=== PATIENT | male | born 1975 | race Caucasian/White ===

== ENCOUNTER 2024-03-16 12:15 | Inpatient (IN) ==
--- NOTE | 2024-03-16 12:46 | Emergency Department Note ---
Impression & Plan SOB (shortness of breath), CHF (congestive heart failure), Pedal edema, Anemia, Methamphetamine abuse ED Provider Note NAME: CARLTON CHO AGE: 48 SEX: M : 1975 ARRIVES VIA: Ambulance INFORMANT: [Patient] ED PROVIDER(S): [Carlton Donald MD] CHIEF COMPLAINT: Short of breath HISTORY OF PRESENT ILLNESS: The patient is a 48-year-old male who has been fatigued and tired and a bit short of breath for around 2 weeks. He has noticed some gargling in his throat and some congestion. He has noticed wheezing. No fever. About a week ago, he noticed some swelling of both feet. This swelling has progressed to his knees. Today he presents for evaluation. Patient does admit that he uses methamphetamine about 5 times a week. He did snort some meth prior to ED arrival. The patient did see a PA outpatient. He was given steroids, he finished up the steroids about 2 days ago, he believes that the steroids helped his breathing slightly. Patient does have an albuterol nebulizer. He states that he was given a long- acting beta agonist/steroid combination medication the same day he was prescribed the steroids. PMHx/PSHx/Social Hx: See Below PHYSICAL EXAM: GENERAL: Patient is in no acute distress. HEENT: No acute trauma, normocephalic atraumatic, mucous membranes moist, no nasal congestion. NECK: No stridor, no adenopathy, no meningismus, trachea is midline. LUNGS: Diminished breath sounds bilaterally with some coarse breath sounds bilaterally. There are no wheezes, there is no respiratory distress HEART: Mildly tachycardic, regular rhythm, no murmurs. ABDOMEN: Soft, nontender, no peritonitis. EXTREMITIES: No cyanosis, full range of motion of all the joints without pain or difficulty. Moderate bilateral pedal edema. NEUROLOGIC: Oriented x 3, no acute motor or sensory deficits, no focal weakness. SKIN: No jaundice, no diaphoresis. DIFFERENTIAL DIAGNOSIS: Fluid overload/CHF, DVT or PE, electrolyte imbalance, renal or liver failure, asthma exacerbation, viral illness, pneumonia, among others. EMERGENCY DEPARTMENT PROCEDURES: MEDICAL DECISION MAKING: There is no leukocytosis. The patient is anemic with a hemoglobin of 11.6. There is a normal platelet count. No coagulopathy. No renal failure or significant electrolyte abnormality. Lactic acid level is not elevated making severe sepsis less likely. Alk phos was elevated, the remaining liver enzymes were unremarkable. The TSH was quite low however, the T4 was normal. Chest x- ray shows some mild cardiomegaly and heart failure. BNP was elevated at 470, consistent with fluid overload/CHF. Bilateral lower extremity ultrasound does not show DVT. Chest CT shows congestion of the lungs possibly consistent with CHF. There was no PE. Urinalysis did not show findings of infection. Urine tox was positive for amphetamines and ecstasy. Respiratory bio fire was negative. On exam, the patient was hypertensive and tachycardic. Pedal edema was present. Patient had a very thorough workup in the ED. It appears his dyspnea and edema are secondary to fluid overload/CHF. The patient was given IV Lasix 40 mg, he has diuresed significantly. Given his presentation, given his findings, given the progression of symptoms over the last couple of weeks, I do think a hospital stay is warranted. Further cardiac workup is indicated. A cardiac echo would be indicated. I spoke with the patient and case management. The on-call hospitalist was consulted. Of note, the patient's blood pressure and heart rate have both improved with the administration of Lasix. Prior/Outside records/notes reviewed: Today's EMS notes describing his presentation and transport to this hospital. ECG per my interpretation: Indication was tachycardia. The ECG shows a sinus tachycardia with a rate of 110. There is some left atrial enlargement and some nonspecific ST change. There is no ST elevation. There is an inverted T wave in lead aVL. No PVCs. The QTc is 500. Continuous Cardiac Monitoring per my interpretation: An order was placed for continuous cardiac monitoring. The monitor shows a rate of 103 with sinus tachycardia. Imaging/x-ray results per my interpretation: Chest x-ray shows some mild cardiomegaly with what appears to be CHF. No focal pneumonia. Chronic Medical/Social conditions affecting care: History of methamphetamine use. Care/Management discussed with: Case management, the on-call hospitalist. Level of care consideration(s): After review of the information above and other included data: --I believe the patient requires escalation of care to admission Critical Care Note: I have personally spent 49 minutes of critical care time in the direct management of this patient. This includes bedside care, interpretation of diagnostic studies, and testing, discussion with consultants, patient, and family members, and other required patient management activities. This 49 minutes is in excess of all separately billable procedures. DISPOSITION: Admission Past Med/Surg History Problem List (Updated 03/16/24 @ 15:42 by Carlton Donald MD) Methamphetamine abuse (Acute) Anemia (Acute) Pedal edema (Acute) CHF (congestive heart failure) (Acute) SOB (shortness of breath) (Acute) Medical History RAD (reactive airway disease) Social History Smoking Status: Current every day smoker Tobacco Type: Cigarettes Feels Safe at Home: Yes Allergies Allergies Allergy/AdvReac Type Severity Reaction Status Date / Time No Known Allergies Allergy Unverified 05/03/12 09:59 Results & Data (ED) Vital Signs Vital Signs - 24 hr 03/16/24 12:49 03/16/24 12:54 03/16/24 12:54 Temperature 36.8 C Temperature Source Oral Pulse Rate 108 H 111 H Pulse Rate [Right Brachial] Pulse Rhythm Regular Pulse Rhythm [Right Brachial] Pulse Strength Normal Pulse Strength [Right Brachial] Respiratory Rate 22 Respiratory Effort / Characteristics Non-Labored Respiratory Depth Normal Respiratory Pattern Regular Blood Pressure 175/117 H Blood Pressure [Right Arm] Blood Pressure Mean 136 Blood Pressure Mean [Right Arm] Blood Pressure Position Sitting Blood Pressure Position [Right Arm] Pulse Oximetry 96 92 Oxygen Delivery Method Room Air Room Air Sepsis Recent Fever Within 48 Hours No Sepsis New/Unexplained Change in Mental Status N/A Sepsis Action Taken by Nursing Physician Notified 03/16/24 15:27 Temperature Temperature Source Pulse Rate Pulse Rate [Right Brachial] 94 H Pulse Rhythm Pulse Rhythm [Right Brachial] Regular Pulse Strength Pulse Strength [Right Brachial] Normal Respiratory Rate 20 Respiratory Effort / Characteristics Non-Labored Respiratory Depth Normal Respiratory Pattern Regular Blood Pressure Blood Pressure [Right Arm] 144/97 H Blood Pressure Mean Blood Pressure Mean [Right Arm] 112 Blood Pressure Position Blood Pressure Position [Right Arm] Sitting Pulse Oximetry 96 Oxygen Delivery Method Room Air Sepsis Recent Fever Within 48 Hours Sepsis New/Unexplained Change in Mental Status Sepsis Action Taken by [facility] Medications Current Medication List: was personally reviewed by me Laboratory Data Attestation: I reviewed the patient's lab results. 03/16/24 12:30 03/16/24 12:30 Lab Results 03/16/24 03/16/24 Range/Units 12:30 13:00 WBC 7.13 (4.8-10.8) K/ul RBC 4.77 (4.70-6.10) M/uL Hgb 11.6 L (14.0-18.0) g/dl Hct 36.9 L (42.0-52.0) % MCV 77.4 L (80.0-100.0) fL MCH 24.3 L (25.0-34.0) pg MCHC 31.4 L (32.0-36.0) g/dL RDW Std Deviation 38.6 (36.4-46.3) fL RDW Coeff of Bora 13.7 (11.5-14.5) % Plt Count 211 (130-400) K/uL MPV 11.7 (9.4-12.4) fL Immature Gran % (Auto) 0.1 % Neut % (Auto) 51.1 % Lymph % (Auto) 38.4 % Calloway % (Auto) 5.6 % Eos % (Auto) 4.1 % Baso % (Auto) 0.7 % Neut # (Auto) 3.64 (1.40-6.50) K/uL Lymph # (Auto) 2.74 (1.20-3.40) K/uL Calloway # (Auto) 0.40 (0.11-0.59) K/uL Eos # (Auto) 0.29 (0.00-0.50) K/uL Baso # (Auto) 0.05 (0.00-0.20) K/uL Immature Gran # (Auto) 0.01 (0.01-0.20) K/uL PT 10.6 (9.0-12.0) Seconds INR 1.0 (0.9-1.1) APTT 28 (21-31) Seconds PTT Ratio 1.0 Sodium 137 (136-145) mmol/L Potassium 4.3 (3.5-5.1) mmol/L Chloride 104 (98-107) mmol/L Carbon Dioxide 28 (21-32) mmol/L Anion Gap 5 (3-11) BUN 18 (6-23) mg/dl Creatinine 0.70 (0.6-1.4) mg/dl Est Cr Clr Drug Dosing 168.0 ml/min eGFR 115.08 BUN/Creatinine Ratio 25.7 H (10-20) Glucose 119 H (70-99(Fasting)) mg/dl Lactate 1.0 (0.4-2.0) mmol/L Calcium 9.0 (8.6-10.3) mg/dl Magnesium 1.8 (1.7-2.4) mg/dl Total Bilirubin 0.5 (0.2-1.0) mg/dl AST 30 (13-39) U/L ALT 43 (7-52) U/L Alkaline Phosphatase 228 H (34-104) U/L Troponin I High Sens 12.7 (0-20) pg/ml B-Natriuretic Peptide 470 H (0-100) pg/ml Total Protein 7.6 (6.0-8.3) gm/dl Albumin 4.3 (3.4-5.0) gm/dl Globulin 3.3 (2.5-4.0) gm/dl Albumin/Globulin Ratio 1.3 (0.9-2) TSH < 0.010 L (0.300-4.500) uIu/ml Free T4 1.36 (0.61-1.60) ng/dl Urine Color Yellow Urine Appearance Clear (Clear) Urine pH 5.0 (4.5-7.5) Ur Specific Sulphur 1.031 H (1.000-1.030) Urine Protein 2+ H (Negative) Urine Glucose (UA) Negative (Negative) Urine Ketones Negative (Negative) Urine Blood Negative (Negative) Urine Nitrite Negative (Negative) Urine Bilirubin Negative (Negative) Urine Urobilinogen Negative (Negative) Ur Leukocyte Esterase Negative (Negative) Urine WBC (Auto) 0-5 (0-5) /hpf Urine RBC (Auto) 0-2 (0-2) /hpf U Hyaline Cast (Auto) 0-2 (0-2) /lpf U Epithel Cells (Auto) 0-2 (0-2) /hpf Urine Bacteria (Auto) None Seen (None Seen) Urine Opiates Screen Neg (Neg) Ur Methadone, Qual Neg (Neg) Urine Fentanyl Screen Neg (Neg) Urine Barbiturates Neg (Neg) Ur Phencyclidine (PCP) Neg (Neg) U Amphetamin/Meth Scrn Pos H (Neg) MDMA (Ecstasy) Screen Pos H (Neg) U Benzodiazepines Scrn Neg (Neg) Ur Cocaine Metabolite Neg (Neg) U Marijuana (THC) Screen Neg (Neg) Adenovirus (PCR) Not Detected (NotDetected) B. pertussis DNA (PCR) Not Detected (NotDetected) B.parapertussis DNA PCR Not Detected (NotDetected) C. pneumoniae DNA (PCR) Not Detected (NotDetected) Coronavirus OC43 (PCR) Not Detected (NotDetected) Coronavirus HKU1 (PCR) Not Detected (NotDetected) Coronavirus 229E (PCR) Not Detected (NotDetected) SARS-CoV-2 (PCR) Not Detected (NotDetected) Coronavirus NL63 (PCR) Not Detected (NotDetected) Human Metapneumovir PCR Not Detected (NotDetected) Influenza Type A (PCR) Not Detected (NotDetected) Influenza Type B (PCR) Not Detected (NotDetected) M. pneumoniae (PCR) Not Detected (NotDetected) Parainfluenza 1 (PCR) Not Detected (NotDetected) Parainfluenza 2 (PCR) Not Detected (NotDetected) Parainfluenza 3 (PCR) Not Detected (NotDetected) Parainfluenza 4 (PCR) Not Detected (NotDetected) RSV (PCR) Not Detected (NotDetected) Entero/Rhino (PCR) Not Detected (NotDetected) Administered Medications Discontinued Medications Furosemide (Furosemide 40 Mg/4 Ml Vial) 40 mg IV ONE ONE Stop: 03/16/24 13:15 Last Admin: 03/16/24 13:37 Dose: 40 mg Documented By: FAVIOLA Ioversol (Optiray 320 125ml) 76 ml IV ONCE ONE Stop: 03/16/24 14:22 Last Admin: 03/16/24 14:21 Dose: 76 ml Documented By: ASHLIE Imaging Data Radiologist's Impression: Venous Doppler Study 03/16/24 12:36 EXAMINATION: Bilateral lower extremity ultrasound lower CLINICAL HISTORY: Bilateral leg swelling, wheezing PRIORS: None TECHNIQUE: Ultrasound interrogation of the deep venous structures was performed with grayscale, color Doppler, compression and augmentation. FINDINGS: Examination is limited due to body habitus. The bilateral common femoral, superficial femoral, saphenous, popliteal and tibial veins demonstrate normal compressibility, frequency and augmentation. IMPRESSION: No sonographic evidence of deep venous thrombosis in the bilateral lower extremities. Electronically signed by Mariella Hoffman 03-16-2024 3:16 PM Chest X-Ray 03/16/24 12:37 XR chest 1V portable CLINICAL HISTORY: Dyspnea. COMPARISON STUDY: No previous studies for comparison. FINDINGS: There is no pneumothorax or pleural effusion. There is mild enlargement of the cardiac silhouette. Interstitial thickening is present. Hazy right lower lung opacity is present. IMPRESSION: 1. Mild enlargement of the cardiac silhouette with interstitial thickening suggestive of interstitial pulmonary edema. 2. Hazy right lower lung opacity. This could be related to overlying soft tissues or alveolar pulmonary edema. Superimposed pneumonia could appear similar. Radiographic follow-up is recommended. ACT 112: Negative or not required by law. Electronically signed by: Ryan Eng M.D. 03/16/2024 12:58 PM Chest CTA 03/16/24 13:14 EXAMINATION: Chest CTA with CLINICAL HISTORY: Dyspnea PRIORS: None TECHNIQUE: Contiguous CTA axial images were obtained through the chest with the use of intravenous contrast. Sagittal and coronal reformations are supplied. FINDINGS: Central and segmental pulmonary arteries are well-opacified. No central or peripheral pulmonary embolism. Heart size is top normal. No pleural or pericardial effusion. Moderate to advanced atherosclerotic disease of the coronary arteries. Mild atherosclerotic disease of the aortic arch. Trachea and mainstem bronchi are patent. Mild diffuse groundglass attenuation throughout all lobes of the lung. Mild pulmonary emphysema in the upper lobes. No large bleb or pneumothorax. No traction bronchiectasis or honeycombing. No pneumonia. Thyroid size is normal. Prominent nonpathologically enlarged lymph nodes present in the mediastinum. Limited visualization of the upper abdomen shows no acute abnormality. In bone windows, no acute osseous abnormality. IMPRESSION: 1. No CT evidence of a central or peripheral pulmonary embolism. 2. Mild pulmonary emphysema, most pronounced in the upper lobes with diffuse bilateral groundglass attenuation throughout the lungs favoring alveolitis. No lobar pneumonia. 3. Moderate to advanced atherosclerotic disease of the coronary arteries. ACT 112: Positive. There are findings on this examination that require communication between the performing entity and the patient following Patient Test Result Information Act ([place] ACT 112) guidelines. Electronically signed by Marielal Hoffman 03-16-2024 2:33 PM Discharge Plan Visit Data Chief Complaint: Swelling/Edema to Extremity Stated Complaint: SWOLLEN BLE/WHEEZING ED Provider: Carlton Donald Discharge Problem: SOB (shortness of breath), CHF (congestive heart failure), Pedal edema, Anemia, Methamphetamine abuse Patient Disposition: Admitted As Inpatient Condition: Fair Forms Stand Alone Forms: [facility] Referrals Referrals: Diane Elena MD [Outside Practitioners] - Discharge Problem: CHF (congestive heart failure) Qualifiers: Heart failure type: unspecified Heart failure chronicity: acute Qualified Code(s): I50.9 - Heart failure, unspecified Anemia Qualifiers: Anemia type: unspecified type Qualified Code(s): D64.9 - Anemia, unspecified
[2024-03-16 12:55] LABS: Basophils # (auto) 0.05 K/uL (0.00-0.20); Basophils % (auto) 0.7 %; Eosinophils # (auto) 0.29 K/uL (0.00-0.50); Eosinophils % (auto) 4.1 %; Hematocrit (blood only) 36.9 % (42.0-52.0); Hemoglobin 11.6 g/dl (14.0-18.0); Immature Granulocytes # (auto) 0.01 K/uL (0.01-0.20); Immature Granulocytes % (auto) 0.1 %; Lymphocytes # (auto) 2.74 K/uL (1.20-3.40); Lymphocytes % (auto) 38.4 %; Mean Corpuscular Hemoglobin 24.3 pg (25.0-34.0); Mean Corpuscular Hgb Conc 31.4 g/dL (32.0-36.0); Mean Corpuscular Volume 77.4 fL (80.0-100.0); Mean Platelet Volume 11.7 fL (9.4-12.4); Monocytes % (auto) 5.6 %; Neutrophils # (auto) 3.64 K/uL (1.40-6.50); Neutrophils % (auto) 51.1 %; Platelet Count 211 K/uL (130-400); RDW Coefficient of Variation 13.7 % (11.5-14.5); RDW Standard Deviation 38.6 fL (36.4-46.3); Red Blood Count 4.77 M/uL (4.70-6.10); White Blood Count 7.13 K/ul (4.8-10.8)
--- NOTE | 2024-03-16 12:59 | XRay Report ---
XR chest 1V portable CLINICAL HISTORY: Dyspnea. COMPARISON STUDY: No previous studies for comparison. FINDINGS: There is no pneumothorax or pleural effusion. There is mild enlargement of the cardiac silh ouette. Interstitial thickening is present. Hazy right lower lung opacity is present. IMPRESSION: 1. Mild enlargement of the cardiac silhouette with interstitial thickening suggestive of interstitial pulmonary edema. 2. Hazy right lower lung opacity. This could be related to overlying soft tissues or alveolar pulmona ry edema. Superimposed pneumonia could appear similar. Radiographic follow-up is recommended. ACT 112: Negative or not required by law. Electronically signed by: Ryan Eng M.D. 03/16/2024 12:58 PM
[2024-03-16 13:09] LABS: Alanine Aminotransferase 43 U/L (7-52); Albumin Globulin Ratio 1.3 (0.9-2); Albumin Level 4.3 gm/dl (3.4-5.0); Alkaline Phosphatase 228 U/L (34-104); Anion Gap 5 (3-11); Aspartate Aminotransferase 30 U/L (13-39); BUN Creatinine Ratio 25.7 (10-20); Bilirubin,Total 0.5 mg/dl (0.2-1.0); Blood Urea Nitrogen 18 mg/dl (6-23); Carbon Dioxide 28 mmol/L (21-32); Chloride 104 mmol/L (98-107); Globulin 3.3 gm/dl (2.5-4.0); Glucose 119 mg/dl (70-99(Fasting)); Magnesium 1.8 mg/dl (1.7-2.4); Potassium 4.3 mmol/L (3.5-5.1); Sodium 137 mmol/L (136-145); Total Protein 7.6 gm/dl (6.0-8.3)
[2024-03-16 13:15] LABS: Troponin I High Sensitivity 12.7 pg/ml (0-20)
[2024-03-16 13:30] LABS: Partial Thromboplastin Time 28 Seconds (21-31); Prothrombin Time 10.6 Seconds (9.0-12.0)
[2024-03-16 13:31] LABS: Appearance Urine Clear (Clear); Bacteria Urine Automated None Seen (None Seen); Bilirubin Urine Negative (Negative); Blood Urine Negative (Negative); Cast Urine Automated 0-2 /lpf (0-2); Color Urine Yellow; Epithelial Cell Urine Auto 0-2 /hpf (0-2); Glucose Urine UA Negative (Negative); Ketones Urine Negative (Negative); Leukocyte Esterase Urine Negative (Negative); Nitrite Urine Negative (Negative); Protein Urine 2+ (Negative); RBC Urine Automated 0-2 /hpf (0-2); Specific Gravity Urine 1.031 (1.000-1.030); Urobilinogen Urine Negative (Negative); WBC Urine Automated 0-5 /hpf (0-5)
[2024-03-16] MEDS: FUROSEMIDE 40 MG/4 ML VIAL IV ONE (13:37)
[2024-03-16 13:39] LABS: Thyroid Stimulating Hormone < 0.010 uIu/ml (0.300-4.500)
[2024-03-16 13:53] LABS: Amphetamines+Metham, Urine Pos (Neg); Barbiturates, Urine Neg (Neg); Benzodiazepine, Urine Neg (Neg); Cocaine, Urine Neg (Neg); Fentanyl, Urine Neg (Neg); MDMA (Ecstacy), Urine Pos (Neg); Marijuana, Urine Neg (Neg); Methadone, Urine Neg (Neg); Opiate, Urine Neg (Neg); Phencyclidine, Urine Neg (Neg)
[2024-03-16 14:14] LABS: T4 Free Thyroxine 1.36 ng/dl (0.61-1.60)
[2024-03-16 14:17] LABS: Adenovirus PCR Not Detected (NotDetected); Bordetella parapertussis PCR Not Detected (NotDetected); Bordetella pertussis PCR Not Detected (NotDetected); Chlamydia pneumoniae PCR Not Detected (NotDetected); Coronavirus 229E PCR Not Detected (NotDetected); Coronavirus CoV-2 (COVID19)PCR Not Detected (NotDetected); Coronavirus HKU1 PCR Not Detected (NotDetected); Coronavirus NL63 PCR Not Detected (NotDetected); Coronavirus OC43PCR Not Detected (NotDetected); Human Metapneumovirus PCR Not Detected (NotDetected); Influenza A PCR Not Detected (NotDetected); Influenza B PCR Not Detected (NotDetected); Mycoplasma pneumoniae PCR Not Detected (NotDetected); Parainfluenza Virus 1 PCR Not Detected (NotDetected); Parainfluenza Virus 2 PCR Not Detected (NotDetected); Parainfluenza Virus 3 PCR Not Detected (NotDetected); Parainfluenza Virus 4 PCR Not Detected (NotDetected); Respiratory Syncytial VirusPCR Not Detected (NotDetected); Rhinovirus/Enterovirus PCR Not Detected (NotDetected)
[2024-03-16] MEDS: OPTIRAY 320 125ml IV ONE (14:21)
--- NOTE | 2024-03-16 14:33 | CT Scan Report ---
EXAMINATION: Chest CTA with CLINICAL HISTORY: Dyspnea PRIORS: None TECHNIQUE: Contiguous CTA axial images were obtained through the chest with the use of intravenous contrast. Sagittal and coronal reformations are supplied. FINDINGS: Central and segmental pulmonary arteries are well-opacified. No central or peripheral pulmonary embolism. Heart size is top normal. No pleural or pericardial effusion. Moderate to advanced atherosclerotic disease of the coronary arteries. Mild atherosclerotic disease of the aortic arch. Trachea and mainstem bronchi are patent. Mild diffuse groundglass attenuation throughout all lobes of the lung. Mild pulmonary emphysema in the upper lobes. No large bleb or pneumothorax. No traction bronchiectasis or honeycombing. No pneumonia. Thyroid size is normal. Prominent nonpathologically enlarged lymph nodes present in the mediastinum. Limited visualization of the upper abdomen shows no acute abnormality. In bone windows, no acute osseous abnormality. IMPRESSION: 1. No CT evidence of a central or peripheral pulmonary embolism. 2. Mild pulmonary emphysema, most pronounced in the upper lobes with diffuse bilateral groundglass attenuation throughout the lungs favoring alveolitis. No lobar pneumonia. 3. Moderate to advanced atherosclerotic disease of the coronary arteries. ACT 112: Positive. There are findings on this examination that require communication between the performing entity and the patient following Patient Test Result Information Act ([place] ACT 112) guidelines. Electronically signed by Mariella Hoffman 03-16-2024 2:33 PM
--- NOTE | 2024-03-16 15:17 | Ultrasound Report ---
EXAMINATION: Bilateral lower extremity ultrasound lower CLINICAL HISTORY: Bilateral leg swelling, wheezing PRIORS: None TECHNIQUE: Ultrasound interrogation of the deep venous structures was performed with grayscale, color Doppler, compression and augmentation. FINDINGS: Examination is limited due to body habitus. The bilateral common femoral, superficial femoral, saphenous, popliteal and tibial veins demonstrate normal compressibility, frequency and augmentation. IMPRESSION: No sonographic evidence of deep venous thrombosis in the bilateral lower extremities. Electronically signed by Mariella Hoffman 03-16-2024 3:16 PM
--- NOTE | 2024-03-16 16:00 | History & Physical Report ---
Date of Service March 16, 2024 Assessment & Plan (1) Volume overload: (2) SOB (shortness of breath): (3) Methamphetamine abuse: Plan: This is a 48-year-old male with PMH of hypertension, asthma, history of opioid abuse now on Subutex, methamphetamine use, tobacco use disorder, depression, anxiety and other medical problems listed below who presents to the ED with shortness of breath x 2 weeks. BNP 470, BLE on exam CTA chest without evidence of PE, mild pulmonary emphysema, bilat groundglass opacities favoring alveolitis, mod-adv atherosclerotic disease of coronaries BLE venous doppler negative for DVT 2D echo Lasix 40mg IV BID Daily weights, low sodium diet, strict I&Os Routine cards consult Discussed importance of methamphetamine cessation Repeat procal in AM given possible alveolitis on imaging - no abx indicated at this time Started on aspirin given atherosclerosis seen on imaging Fasting lipid panel, a1c in AM (4) Abnormal TSH: Plan: TSH <0.010, free T4 WNL at 1.36 Thyroid ultrasound in setting of ? R thyroid nodule on exam Repeat TFTs (5) Anemia: Plan: Hgb 11.6 (unknown baseline), MCV 77 Iron studies, folic acid, B12 labs pending for AM Daily CBC (6) History of opioid abuse: Plan: Continue Subutex 8mg BID (7) Asthma: Plan: No wheezing on exam Continue albuterol, Advair inh Duonebs PRN DVT Ppx: SQ lovenox Code status: FULL PCP: Live Dispo: Admitted to PCU Patient seen in collaboration with Dr. Jesus. Please see addendum. I spent a total of 65 minutes coordinating, documenting, and providing care for this patient excluding time spent in the performance of separately billed services. History of Present Illness Chief Complaint: SOB, weight gain Primary Care Provider: NO PCP This is a 48-year-old male with PMH of hypertension, asthma, history of opioid abuse now on Subutex, methamphetamine use, tobacco use disorder, depression, anxiety and other medical problems listed below who presents to the ED with shortness of breath x 2 weeks. More SOB when laying down and a slight wheeze. Denies F/C, cough, congestion. Over the past week, has noted lower extremity swelling that started in his feet and has progressed to his knees. States he has gained 70# over the past 6 months, which he attributes to drinking " a lot of chocolate milk". Was seen by PCP on February 21 for this SOB, especially at night and was treated for asthma exacerbation. Completed a steroid taper and has been using Advair but states SOB has not really improved at all. Also thinks he has sleep apnea but is undiagnosed. Admits to using meth about 5 times a week, snorting some today prior to arrival. No F/C, lightheadedness. CP, SOB, N/V, abd pain, dysuria, diarrhea or constipation. Denies any known issues with thyroid. Allergies Allergy/AdvReac Type Severity Reaction Status Date / Time No Known Allergies Allergy Unverified 05/03/12 09:59 Home Medications Medication Instructions Recorded Confirmed Type albuterol sulfate 2.5 mg/3 mL 2.5 mg continuous nebulization Q4 03/16/24 03/16/24 History (0.083 %) solution for nebulization PRN DIRECTED albuterol sulfate 90 mcg/actuation 2 puff inhalation .EVERY 4-6 HOURS 03/16/24 03/16/24 History aerosol inhaler PRN DIRECTED buprenorphine HCl 8 mg sublingual 8 mg sublingual BID 03/16/24 03/16/24 History tablet fluticasone 100 mcg-salmeterol 50 1 ea inhalation AMHS 03/16/24 03/16/24 History mcg/dose blistr powdr for inhalation Past Med/Surg History Problem List (Updated 03/16/24 @ 18:06 by Nydia Alejandre PA-C) Abnormal TSH Volume overload Methamphetamine abuse (Acute) Anemia (Acute) SOB (shortness of breath) (Acute) Medical History (Updated 03/16/24 @ 18:06 by Nydia Alejandre PA-C) Asthma History of opioid abuse Surgical History No pertinent past surgical history Family History Other Asthma Diabetes Social History Smoking Status: Current every day smoker Tobacco Type: Cigarettes packs per day: 0.5; Cigarettes Per Day: 1/2 pack per day; Second Hand Exposure: No; Do You Dip or Chew Tobacco: No; Tobacco Cessation Education Requested by Patient: No Hx Alcohol Use: Yes Alcohol type: beer Hx Substance Use: Yes Non-Prescribed Medications: Amphetamines Non-Prescribed Medications Comment: snorts meth 4-5 days/week, former opioid abuse now on suboxone Last Used Substance: Just Prior to Arrival Preferred Language: Citizen Of [place] Communication Ability: Effective Aoc Director Combat Operations Officer Required: No Beliefs That Will Affect Care: None Current Living Situation: Spouse and Family Current Living Situation Comment: Lives with girlfriend and son Other Information That Helps Us Care for You: No Feels Safe at Home: Yes Safety Concerns: Feels Safe At This Time Assistive Devices: None Review of Systems Review of Systems: At least ten systems reviewed and negative except as noted in the HPI. Physical Exam Physical Exam: Please see Dr. Jesus's addendum for physical exam. Results & Data Results & Data Vital Signs (Past 12 Hours) Vital Signs Temp Pulse Pulse Resp BP BP Pulse Ox 03/16/24 15:27 94 H 20 144/97 H 96 03/16/24 12:54 92 03/16/24 12:54 36.8 C 111 H 22 175/117 H 96 03/16/24 12:49 108 H O2 Del Method 03/16/24 15:27 Room Air 03/16/24 12:54 Room Air 03/16/24 12:54 Room Air 03/16/24 12:49 Laboratory Results Short CBC 03/16/24 Range/Units 12:30 WBC 7.13 (4.8-10.8) K/ul Hgb 11.6 L (14.0-18.0) g/dl Hct 36.9 L (42.0-52.0) % Plt Count 211 (130-400) K/uL BMP 03/16/24 12:30 Sodium 137 Potassium 4.3 Chloride 104 Carbon Dioxide 28 BUN 18 Creatinine 0.70 Glucose 119 H Calcium 9.0 Liver Function 03/16/24 Range/Units 12:30 Total Bilirubin 0.5 (0.2-1.0) mg/dl AST 30 (13-39) U/L ALT 43 (7-52) U/L Alkaline Phosphatase 228 H (34-104) U/L Albumin 4.3 (3.4-5.0) gm/dl Urine 03/16/24 Range/Units 13:00 Urine Color Yellow Urine Appearance Clear (Clear) Urine pH 5.0 (4.5-7.5) Ur Specific [place] 1.031 H (1.000-1.030) Urine Protein 2+ H (Negative) Urine Glucose (UA) Negative (Negative) Diagnostic Findings Venous Doppler Study 03/16/24 12:36 EXAMINATION: Bilateral lower extremity ultrasound lower CLINICAL HISTORY: Bilateral leg swelling, wheezing PRIORS: None TECHNIQUE: Ultrasound interrogation of the deep venous structures was performed with grayscale, color Doppler, compression and augmentation. FINDINGS: Examination is limited due to body habitus. The bilateral common femoral, superficial femoral, saphenous, popliteal and tibial veins demonstrate normal compressibility, frequency and augmentation. IMPRESSION: No sonographic evidence of deep venous thrombosis in the bilateral lower extremities. Electronically signed by Mariella Hoffman 03-16-2024 3:16 PM Chest X-Ray 03/16/24 12:37 XR chest 1V portable CLINICAL HISTORY: Dyspnea. COMPARISON STUDY: No previous studies for comparison. FINDINGS: There is no pneumothorax or pleural effusion. There is mild enlargement of the cardiac silhouette. Interstitial thickening is present. Hazy right lower lung opacity is present. IMPRESSION: 1. Mild enlargement of the cardiac silhouette with interstitial thickening suggestive of interstitial pulmonary edema. 2. Hazy right lower lung opacity. This could be related to overlying soft tissues or alveolar pulmonary edema. Superimposed pneumonia could appear similar. Radiographic follow-up is recommended. ACT 112: Negative or not required by law. Electronically signed by: Ryan Eng M.D. 03/16/2024 12:58 PM Chest CTA 03/16/24 13:14 EXAMINATION: Chest CTA with CLINICAL HISTORY: Dyspnea PRIORS: None TECHNIQUE: Contiguous CTA axial images were obtained through the chest with the use of intravenous contrast. Sagittal and coronal reformations are supplied. FINDINGS: Central and segmental pulmonary arteries are well-opacified. No central or peripheral pulmonary embolism. Heart size is top normal. No pleural or pericardial effusion. Moderate to advanced atherosclerotic disease of the coronary arteries. Mild atherosclerotic disease of the aortic arch. Trachea and mainstem bronchi are patent. Mild diffuse groundglass attenuation throughout all lobes of the lung. Mild pulmonary emphysema in the upper lobes. No large bleb or pneumothorax. No traction bronchiectasis or honeycombing. No pneumonia. Thyroid size is normal. Prominent nonpathologically enlarged lymph nodes present in the mediastinum. Limited visualization of the upper abdomen shows no acute abnormality. In bone windows, no acute osseous abnormality. IMPRESSION: 1. No CT evidence of a central or peripheral pulmonary embolism. 2. Mild pulmonary emphysema, most pronounced in the upper lobes with diffuse bilateral groundglass attenuation throughout the lungs favoring alveolitis. No lobar pneumonia. 3. Moderate to advanced atherosclerotic disease of the coronary arteries. ACT 112: Positive. There are findings on this examination that require communication between the performing entity and the patient following Patient Test Result Information Act ([place] ACT 112) guidelines. Electronically signed by Mariella Hoffman 03-16-2024 2:33 PM Supervising Physician Co-Signing Physician Notes Patient is a 48 male with history of asthma, sleep apnea, drug use disorder, tobacco use disorder, obesity and other medical problems who is not seen a physician for many years presents with worsening shortness of breath especially on exertion associated with weight gain, leg edema. He admits to have intermittent wheezing which he attributes to asthma. He also believes that he has sleep apnea but not officially diagnosed. He was recently started on Advair, steroid taper course which did not relieve his symptoms. Please review HPI for complete details of presentation. I personally reviewed blood work and imaging studies. Blood work suggestive of microcytic anemia, glucose 119, lactic normal, alkaline phosphatase 228, BNP elevated at 470, TSH less than 0.010, normal free T4. Urinalysis showed 2+ protein but otherwise within normal limits. Toxicology screen positive for amphetamines. BioFire negative. Venous Doppler showed no DVT. Chest CTA showed mild pulmonary emphysema, and findings suggestive of possible alveolitis, moderate to advanced atherosclerotic disease of coronary arteries. Blood cultures currently pending. EKG showed sinus tachycardia, left atrial enlargement, nonspecific T wave abnormalities, QTc 500. Physical Exam: Vitals signs as noted above General Appearance: Obese, no apparent distress Head: normocephalic, Atraumatic Eyes: normal inspection, EOMI Neck: supple, Trachea midline,? 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 Elevated BNP, clinically volume overloaded I's and O's, daily weight, IV Lasix as above Check resting echo, cardiology consulted Discussed amphetamine cessation Will consider antibiotics if elevated procalcitonin Given atherosclerotic disease on CTA, will start on aspirin Check lipid panel, A1c Further management based on echo results Abnormal thyroid function test Very TSH low, normal free T4 We will order workup for hyperparathyroidism TR antibody, thyroid peroxidase antibody, thyroid ultrasound Will likely need RAIU, thyroid Scintigraphy as outpatient Microcytic anemia Anemia workup ordered Unintentional weight gain Obesity BMI 35 Further workup as outpatient I personally interviewed and examined at bedside. Patient's care is coordinated with Nydia Alejandre PA-C. I have reviewed the advanced practitioner's documentation, and I agree with plan of care. Please refer to the documentation above for details of patient's presentation and for discussion of other issues. I spent a total of34 minutes coordinating, documenting, and providing care for this patient excluding time spent in the performance of separately billed services. (5) Anemia Anemia type: unspecified type Qualified Code(s): D64.9 - Anemia, unspecified
--- OUTSIDE RECORDS SUMMARY | 2024-03-16 17:27 | External Medical Summary | Summary of Care ---
Author Name Unknown Organization [facility] Address [address] [place] [address] Phone [phone] Care Team Providers Care Supervisor Fertilizer Processing Name Role Phone Unavailable Primary Care Provider Unavailabl e Encounter Details Date Type Department Care Team (Late st Contact Info) Description 12/03/2023 Population Health External Data Unspecified Department Allergies No known active allergiesdocumented as of this encounter (statuses as of 12/03/2023) Medications Medication Sig Dispensed Refills Start Date End Date Status MAXAIR AUTOHALER 200 MCG/INH IN AERB Two puffs every 4 hours as needed for wheezing 1 Inhaler 11 03/10/2011 Active amLODIPine (NORVASC) 10 MG Tablet Take 10 mg by mouth at bedtime. 5 05/10/2017 Active buprenorphine HCl (SUBUTEX) 8 MG Sublingual tablet DISSOLVE THREE TABLETS UNDER THE TONGUE EVERY DAY FOR 30 DAYS 0 06/10/2017 Active VENTOLIN HFA 108 (90 Base) MCG/ACT inhaler inhale TWO puffs FOUR TIMES DAILY NEEDED 5 05/10/2017 Active lisinopril (PRINIVIL) 10 MG TabletIndications:HT N, goal below 140/90 Take 1 Tab by mouth daily. 30 Tab 5 06/18/2017 Active triamcinolone acetonide (ARISTOCORT) 0.1 % creamIndications:Ecz alexia, unspecified type Apply topically to affected area 2 times a day. To affected area. 45 g 5 06/18/2017 Active documented as of this encounter (statuses as of 12/03/2023) Active Problems Problem Noted Date Diagnosed Date HTN, goal below 140/90 06/18/2017 Asthma, mild persistent 03/10/2011 Drug abuse, opioid type Depression Generalized anxiety disorder documented as of this encounter (statuses as of 12/03/2023) Resolved Problems Problem Noted Date Diagnosed Date Resolved Date Asthma with severity to be determined 03/10/2011 03/10/2011 Overview: ICD-10 update of inactive term documented as of this encounter (statuses as of 12/03/2023) Immunizations Name Administration Dates Next Due Seasonal Influenza, Trivalen t, (IIV3), with Preserv, (Fluzone) 04/10/2011(Deferred: Patient Refused) TDAP, Age 7 and older, IM (Adacel) 04/10/2011(De ferred: Patient Refused) documented as of this encounter Social History Tobacco Use Types Packs/Day Years Used Date Smoking Tobacco: Every Day Cigarettes 1 8 Smokeless Tobacco: Never Alcohol Use Standard Drinks/Week Comments Yes 0 (1 standard drink = 0.6 oz pur e alcohol) occasional--three times a week PHQ-2 Answer Date Recorded PHQ-2 Score -1 02/03/2018 Sex and Gender Information Value Date Recorded Sex Assigned at Not on file Gender Identity Not on file Sexual Orientation Not on file documented as of this encounter Plan of Treatment Health Maintenance Due Date Last Done Comments DISCUSS TOBACCO CESSATION (Jose PEREZ TO SMARTSET #[id number]) 1977 Pneumococcal Vaccine: Pediat rics (0 to 5 Years) and At-Risk Patients (6 to 64 Years) (1 of 2 - PCV) 08/08/1983 HIV Screening 1992 Albumin/Creatinine Ratio 08/08/1995 Hepatitis C Screening 08/08/1995 DTap/Tdap Vaccines (1 - Tdap) 1996 Hepatitis B Vaccine (1 of 3 - 19+ 3-dose series) 1996 *SPIROMETRY ONCE FOR ASTHMA-ADULT 06/23/2017 Depression Monitoring 06/18/2018 06/18/2017 GFR 09/21/2018 09/21/2017 Cologuard 2022 Colonoscopy 2022 Colorectal Cancer Screening 2022 Fecal Occult Blood Test 2022 Sigmoidoscopy 2022 Lipid Panel 09/21/2022 09/21/2017 COVID-19 Vaccine (1 - 2022-2 4 season) 2023 Influenza Vaccine (FLU shot) (#1) 2023 HPV (Gardasil) Vaccine Aged Out No lo nger eligible based on patient's age to complete this topic MENINGOCOCCAL (MENACTRA/MENVEO) Aged Out No longer eligible based on patient's age to complete this topic documented as of this encounter Medical Devices Not on filedocumented as of this encounter
--- OUTSIDE RECORDS SUMMARY | 2024-03-16 17:27 | External Medical Summary | Summary of Care ---
Author Name Unknown Organization [facility] Address [address] [facility] [facility] [place] [address] Phone [phone] Care Team Providers Care Supervisor Poultry Hatchery Name Role Phone Sultana Campbell MD Primary Care Pr ovider Encounter Details Date Type Department Care Team (Late st Contact Info) Description 02/26/2024 Orders Only PATIENT PORTAL DO NOT DELETE THIS DEPT USED BY [place] [id number] Allergies No known active allergiesdocumented as of this encounter (statuses as of 02/26/2024) Medications buprenorphine HCl (SUBUTEX) 8 MG Sublingual tablet DISSOLVE THREE TABLETS UNDER THE TONGUE EVERY DAY FOR 30 DAYS 0 8 Active VENTOLIN HFA 108 (90 Base) MCG/ACT inhaler inhale TWO puffs FOUR TIMES DAILY NEEDED 5 8 Active predniSONE 10 MG Oral Tablet (Deltasone)Indica tions:Mild persistent asthma without complication Take 5 tabs for 2 days, 4 tabs for 2 days, 3 tabs for 2 days, 2 tabs for 2 days 1 tab for 2 days 30 Tablet 4 Active Albuterol Sulfate (2.5 MG/3ML) 0.083% Inhalation Nebulization Solution (Proventil)Indica tions:Mild persistent asthma without complication Inhale 1 Vial via nebulizer every 4 hours as needed for Wheezing. 120 mL 5 4 Active Fluticasone-Salme terol 100-50 MCG/ACT Inhalation Aerosol Powder Breath Activated (Advair Diskus)Indication s:Mild persistent asthma without complication Inhale 1 Puff by mouth in the morning and 1 Puff before bedtime. 60 Each 2 4 Active documented as of this encounter (statuses as of 02/26/2024) Active Problems Problem Noted Date Diagnosed Date HTN, goal below 140/90 06/18/2017 Asthma, mild persistent 03/10/2011 Drug abuse, opioid type Depression Generalized anxiety disorder documented as of this encounter (statuses as of 02/26/2024) Resolved Problems Problem Noted Date Diagnosed Date Resolved Date Asthma with severity to be determined 03/10/2011 03/10/2011 Overview (07/12/2015): ICD-10 update of inactive term documented as of this encounter (statuses as of 02/26/2024) Immunizations Name Administration Dates Next Due Seasonal Influenza Vac., MDV , IM, 0.5 mL (Fluzone) 04/10/2011(Deferred: Patient Refused) TDAP, Age 7 [...] Recorded Sex Assigned at Not on file Legal Sex Male 5:26 AM EST Gender Identity Not on file Sexual Orientation Not on file documented as of this encounter Plan of Treatment Upcoming Encounters Date Type Department Care Team (Late st Contact Info) Description 03/07/2024 12:00 PM EST [address] [id number] Brant Dominguez CRNP [address] [place] [address] [place] [id number] 04/23/2024 11:40 AM EST Office Visit Family [address] [place] [phone] Sultana Campbell MD [address] [place] [address] [place] [phone] Health Maintenance Due Date Last Done Comments DISCUSS TOBACCO CESSATION (R EFER TO SMARTSET #[id number]) 1977 Pneumococcal Vaccine: Pediat rics (0 to 5 Years) and At-Risk Patients (6 to 64 Years) (1 of 2 - PCV) 08/08/1983 HIV Screening 1992 Albumin/Creatinine Ratio 08/08/1995 Hepatitis C Screening 08/08/1995 DTap/Tdap Vaccines (1 - Tdap) 1996 Hepatitis B Vaccine (1 of 3 - 19+ 3-dose series) 1996 *SPIROMETRY ONCE FOR ASTHMA-ADULT 06/23/2017 Depression Monitoring 06/18/2018 06/18/2017 GFR 09/21/2018 09/21/2017 Diabetes Screening 09/21/2020 09/21/2017 Cologuard 2022 Colonoscopy 2022 Colorectal Cancer Screening 2022 Fecal Occult Blood Test 2022 Sigmoidoscopy 2022 Lipid Panel 09/21/2022 09/21/2017 COVID-19 Vaccine (1 - 2023-2 5 season) 2023 Influenza Vaccine (FLU shot) (#1) 2023 HPV (Gardasil) Vaccine Aged Out No lo nger eligible based on patient's age to complete this topic MENINGOCOCCAL (MENACTRA/MENVEO) Aged Out No longer eligible based on patient's age to complete this topic documented as of this encounter Medical Devices Not on filedocumented as of this encounter Care Teams Supervisor Poultry Hatchery Relationship Specialty Start Date End Date Sultana Cambpell MD [address] [place] [address] [place] [phone] PCP - General Family Medicine 02/22/24 documented as of this encounter
--- OUTSIDE RECORDS SUMMARY | 2024-03-16 17:27 | External Medical Summary | Summary of Care ---
Author Name Unknown Organization [facility] Address [address] [place] [address] Phone [phone] Care Team Providers Care Environmental Educator Name Role Phone Sultana Campbell MD Primary Care Pr ovid Reason for Referral * Evaluate & Treat - Unlimited Visits (Within 30 days (routine)) - Authorized Specialty Diagnoses / Procedures Referred By Satnam t Referred To Contact Sleep Medicine / Sleep Disorders Diagnoses Snoring Brant Dominguez CRNP [address] [place] [address] [place] [id number] Phone: tel: fax: Referral ID Status Reason Start Date Expiration Date Visits Requested Visits Authorized [id number] Authorized Specialty Services Required 4 2 2 Question Answer Referral Priority Within 30 days (routine) Where should this appointment be scheduled? [facility] SLEEP MED ADULT REFERRAL Sleep Apnea Testing Only Reason for Visit * Reason Comments Physical-Exam Encounter Details Date Type Department Care Team (Late st Contact Info) Description 02/22/2024 3:00 PM EST Office Visit Family Medicine [address] [place] [phone] Brant Dominguez CRNP [address] [place] [address] [place] [id number] Weight gain*; Mild persistent asthma without complication; HTN, goal below 140/90; Snoring; Drug abuse, opioid type (HCC) Allergies No known active allergiesdocumented as of this encounter (statuses as of 02/22/2024) Medications buprenorphine HCl (SUBUTEX) 8 MG Sublingual tablet DISSOLVE THREE TABLETS UNDER THE TONGUE EVERY DAY FOR 30 DAYS 0 8 Active VENTOLIN HFA 108 (90 Base) MCG/ACT inhaler inhale TWO puffs FOUR TIMES DAILY NEEDED 5 8 Active predniSONE 10 MG Oral Tablet (Deltasone)Indic ations:Mild persistent asthma without complication Take 5 tabs for 2 days, 4 tabs for 2 days, 3 tabs for 2 days, 2 tabs for 2 days 1 tab for 2 days 30 Tablet 4 Active Albuterol Sulfate (2.5 MG/3ML) 0.083% Inhalation Nebulization Solution (Proventil)Indic ations:Mild persistent asthma without complication Inhale 1 Vial via nebulizer every 4 hours as needed for Wheezing. 120 mL 5 4 Active Fluticasone-Salm eterol 100-50 MCG/ACT Inhalation Aerosol Powder Breath Activated (Advair Diskus)Indicatio ns:Mild persistent asthma without complication Inhale 1 Puff by mouth in the morning and 1 Puff before bedtime. 60 Each 2 4 Active MAXAIR AUTOHALER 200 MCG/INH IN AERB Two puffs every 4 hours as needed for wheezing 1 Inhaler 11 1 02/22/20 24 Discontin ued(Medic ation List Clean Up) amLODIPine (NORVASC) 10 MG Tablet Take 10 mg by mouth at bedtime. 5 8 02/22/20 24 Discontin ued(Medic ation List Clean Up) lisinopril (PRINIVIL) 10 MG TabletIndication s:HTN, goal below 140/90 Take 1 Tab by mouth daily. 30 Tab 5 8 02/22/20 24 Discontin ued(Medic ation List Clean Up) triamcinolone acetonide (ARISTOCORT) 0.1 % creamIndications :Eczema, unspecified type Apply topically to affected area 2 times a day. To affected area. 45 g 5 8 02/22/20 24 Discontin ued(Medic ation List Clean Up) documented as of this encounter (statuses as of 02/22/2024) Active Problems Problem Noted Date Diagnosed Date HTN, goal below 140/90 06/18/2017 Asthma, mild persistent 03/10/2011 Drug abuse, opioid type Depression Generalized anxiety disorder documented as of this encounter (statuses as of 02/22/2024) Resolved Problems Problem Noted Date Diagnosed Date Resolved Date Asthma with severity to be determined 03/10/2011 03/10/2011 Overview (07/12/2015): ICD-10 update of inactive term documented as of this encounter (statuses as of 02/22/2024) Immunizations Name Administration Dates Next Due Seasonal Influenza Vac., MDV , IM, 0.5 mL (Fluzone) 04/10/2011(Deferred: Patient Refused) TDAP, Age 7 and older, IM (Adacel) 04/10/2011(De ferred: Patient Refused) documented as of this encounter Social History Tobacco Use Types Packs/Day Years Used Date Smoking Tobacco: Every Day Cigarettes 1 8 Smokeless Tobacco: Never Tobacco Cessation:Ready to Q uit: Not Asked; Counseling Given: Not Answered Alcohol Use Standard Drinks/Week Comments Yes 0 (1 standard drink = 0.6 oz pur e alcohol) occasional--three times a week PHQ-2 Answer Date Recorded PHQ-2 Score -1 02/03/2018 Sex and Gender Information Value Date Recorded Sex Assigned at Not on file Legal Sex Male 5:26 AM EST Gender Identity Not on file Sexual Orientation Not on file documented as of this encounter Last Filed Vital Signs Vital Sign Reading Time Taken Comments Blood Pressure 142/90 02/22/2024 3:03 PM EST Pulse 98 02/22/2024 3:34 PM EST Temperature 36.4 C (97.6 F) 02/22/2024 3:03 PM ES T Respiratory Rate 18 02/22/2024 3:03 PM EST Oxygen Saturation 97% 02/22/2024 3:03 PM EST Inhaled Oxygen Concentration - - Weight 122.9 kg (271 lb) 02/22/2024 3:03 PM EST Height 182.9 cm (6') 02/22/2024 3:03 PM EST Body Mass Index 36.75 02/22/2024 3:03 PM EST documented in this encounter Nursing Notes * Day Parson LPN - 02/22/2024 3:01 PM EST New Getting out of breath easily. He said he had asthma. Now has wheezing. Thinks he has sleep apnea. Wakes up gasping air. Weight gain Rash on right ankle. Gets numbness around it also. documented in this encounter Plan of Treatment Upcoming Encounters Date Type Department Care Team (Late st Contact Info) Description 03/07/2024 12:00 PM EST Office Visit [address] [phone] Brant Dominguez CRNP [address] [place] [address] [place] [id number] 04/23/2024 11:40 AM EST Office Visit [address] [place] [phone] Sultana Campbell MD [address] [place] [address] [place] [phone] Scheduled Orders Name Type Priority Associated Diagnoses Orde r Schedule LIPID PANEL WITH DIRECT LDL IF TG IS HIGH Lab Routine Weight gain Expected: 02/22/2024, Expires: 02/21/2025 COMPREHENSIVE METABOLIC PANEL Lab Routine HTN, goal below 140/90 Expected: 02/22/2024 (Approximate), Expires: 02/21/2025 CBC WITH WBC DIFFERENTIAL AND ANEMIA REFLEX WORKUP Lab Routine HTN, goal below 140/90 Expected: 02/22/2024 (Approximate), Expires: 02/21/2025 HEMOGLOBIN A1C Lab Routine Weight gain Expected: 02/22/2024 (Approximate), Expires: 02/21/2025 TSH WITH FREE T4 IF INDICATED Lab Routine Weight gain Expected: 02/22/2024 (Approximate), Expires: 02/21/2025 Scheduled Referrals Name Type Priority Associated Diagnoses Orde r Schedule SLEEP MEDICINE REFERRAL OP Referral Within 30 days (routine) Snoring Ordered: 02/22/2024 Health Maintenance Due Date Last Done Comments DISCUSS TOBACCO CESSATION (R EFER TO [facility]ARTSET #[id number]) 1975 Pneumococcal Vaccine: Pediat rics (0 to [...] Not on filedocumented as of this encounter Visit Diagnoses Diagnosis Weight gain- Primary Abnormal weight gain Mild persistent asthma without complication Unspecified asthma HTN, goal below 140/90 Unspecified essential hypertension Snoring Other dyspnea and respiratory abnormality Drug abuse, opioid type (HCC) Opioid abuse, unspecified documented in this encounter Care Teams Environmental Educator Relationship Specialty Start Date End Date Sultana Campbell MD [address] [place] [address] [place] [phone] PCP - General Family Medicine 02/22/24 documented as of this encounter
[2024-03-16] MEDS ORDERED: ALBUTEROL HFA 8 GM INHALER INH PRN (17:30)
[2024-03-16] MEDS ORDERED: ALBUT/IPRATROP 3MG/0.5MG NEB 3 ML VIAL NEB PRN (17:30)
[2024-03-16] MEDS ORDERED: POLYETHYLENE (MIRALAX) 17 GM PACK PO PRN (17:30)
[2024-03-16] MEDS: FUROSEMIDE 40 MG/4 ML VIAL IV SCH (18:41)
[2024-03-16] MEDS: ASPIRIN 81 MG ECTAB PO SCH (19:33)
[2024-03-16] MEDS: buprenorphine HCL 8 MG SUBL SL SCH (21:24)
[2024-03-16] MEDS: ACETAMINOPHEN 325 MG TAB PO STA (22:47)
[2024-03-16] MEDS: POTASSIUM CHLORIDE CRTAB 20 MEQ TABCR PO STA (22:47)
[2024-03-16] MEDS: MAGNESIUM SULFATE / D5W 1 GM/100 ML BAG IV ONE (22:48)
[2024-03-17 05:11] LABS: Hematocrit (blood only) 40.9 % (42.0-52.0); Hemoglobin 12.8 g/dl (14.0-18.0); Mean Corpuscular Hemoglobin 24.1 pg (25.0-34.0); Mean Corpuscular Hgb Conc 31.3 g/dL (32.0-36.0); Mean Corpuscular Volume 76.9 fL (80.0-100.0); Mean Platelet Volume 11.3 fL (9.4-12.4); Platelet Count 251 K/uL (130-400); RDW Coefficient of Variation 14.1 % (11.5-14.5); RDW Standard Deviation 38.5 fL (36.4-46.3); Red Blood Count 5.32 M/uL (4.70-6.10); White Blood Count 7.81 K/ul (4.8-10.8)
[2024-03-17 05:33] LABS: Anion Gap 7 (3-11); BUN Creatinine Ratio 21.3 (10-20); Blood Urea Nitrogen 17 mg/dl (6-23); Calcium 9.2 mg/dl (8.6-10.3); Carbon Dioxide 30 mmol/L (21-32); Chloride 101 mmol/L (98-107); Cholesterol 217 mg/dl (0-200); Creatinine Clr Calc Pharmacy 153.7 ml/min; Glucose 95 mg/dl (70-99(Fasting)); HDL Cholesterol 41 mg/dl; Iron 41 mcg/dl (35-175); Magnesium 2.2 mg/dl (1.7-2.4); Potassium 4.2 mmol/L (3.5-5.1); Sodium 138 mmol/L (136-145); Transferrin 370 mg/dl (200-360); Triglycerides 102 mg/dl (0-150)
[2024-03-17 05:44] LABS: Chol HDL Ratio 5.3 (0-5); LDL Cholesterol Calculated 156 mg/dl; Total Iron Binding Cap Calc 518 mcg/dl (250-450); Transferrin (FE) Percent Satur 8 % (20-50); VLDL Cholesterol 20 mg/dl (0-30)
[2024-03-17 05:50] LABS: Thyroid Stimulating Hormone < 0.010 uIu/ml (0.300-4.500)
[2024-03-17 05:53] LABS: Ferritin 21.7 ng/ml (8-388)
[2024-03-17 05:59] LABS: Folate (Folic Acid),Ser orPlas 7.69 ng/ml (>5.38)
--- NOTE | 2024-03-17 06:11 | Electrocardiogram Report ---
Test Reason : Blood Pressure : */* mmHG Vent. Rate : 110 BPM Atrial Rate : 110 BPM P-R Int : 170 ms QRS Dur : 96 ms QT Int : 370 ms P-R-T Axes : 53 -7 80 degrees QTcB Int : 500 ms Sinus tachycardia Left atrial enlargement Nonspecific T wave abnormality Abnormal ECG No previous ECGs available Confirmed by Velasquez Arellano ([id number]) on 03/17/2024 6:11:46 AM Referred By: REFERRED SELF Confirmed By: Velasquez Arellano
[2024-03-17] MEDS: PERFLUTREN LIPID MICROSPHERE (DEFINITY) IV ONE (07:14)
[2024-03-17 07:41] VITALS: RESP 18
[2024-03-17 07:58] LABS: Estimated Average Glucose 123 mg/dl; Hemoglobin A1C 5.9 % (4.5-5.6)
[2024-03-17] MEDS: ENOXAPARIN INJ 40 MG/0.4 ML SYR SQ SCH (08:38)
[2024-03-17] MEDS: POTASSIUM CHLORIDE CRTAB 20 MEQ TABCR PO SCH (08:41)
--- NOTE | 2024-03-17 09:11 | Ultrasound Report ---
US thyroid CLINICAL HISTORY: 48 years-old Male with low TSH, ? R nodule on exam. Abnormal thyroid function test s COMPARISON: CTA chest of same day TECHNIQUE: Multiple real time sonographic images of the thyroid were obtained accessing roth scale ap pearance and color doppler flow. FINDINGS: MEASUREMENTS: Right lobe: 6.6 x 4.4 x 3.9 cm Left lobe: 5.4 x 2.8 x 2.8 cm Isthmus: 0.7 cm PARENCHYMA: The thyroid parenchymal echotexture is heterogeneous. NODULES: No discrete nodules are appreciated. IMPRESSION: Heterogeneous thyroid parenchyma without discrete nodule identified. Correlate with thyro id function tests. ACT 112: Negative or not required by law. The above report was generated using voice recognition software. It may contain grammatical, syntax o r spelling errors. Electronically signed by: Claus Cardenas M.D. 03/17/2024 9:09 AM
[2024-03-17] MEDS: FLUTICASONE/VILANTEROL 100/25MCG 14 PUFFS/INHALER INH SCH (09:39)
--- NOTE | 2024-03-17 10:26 | Hospitalist Progress Note ---
Date of Service March 17, 2024 Assessment & Plan (1) Volume overload: Plan: Patient does have bilateral lower extremity swelling which seems to be getting worse over time especially in a acute -subacute fashion, so far the workup did not show any lower extremity DVT although we have not reviewed the abdominal venous system, echocardiogram is pending which will show if there is any underlying LV dysfunction, cardiomyopathy or any evidence of pulmonary hype rtension, Therapeutically agree with giving IV Lasix for now, monitor intake and output and adjust treatment. Patient does have normal serum albumin however he does have 2+ proteinuria. He may need to have a 24-hour urine protein check. Liver function test are normal. (2) Substance use disorder: Plan: Patient will be counseled, his urine was positive for methamphetamine and MDMA. Continue with Subutex. (3) Microcytic anemia: Plan: Hemoglobin is stable around 11-12, MCV is low, will order iron studies. (4) Abnormal TSH: Plan: thyroid antimicrosomal antibody and TSH receptor binding antibody were ordered. TS.H was found to be extremely low, thyroid antimicrosomal and receptor binding antibody were ordered, thyroid ultrasound was done which showed some evidence of heterogeneity without nodule. Await the result of serology Plan Continue completing the workup for new onset lower extremity edema, echocardiogram is pending, monitor response to diuresis. If the echocardiogram is unremarkable, we might need to do abdominal CTA to review for any venous obstruction compromise in the abdominal cavity. Follow-up with iron studies and FOBT. Follow with thyroid serology. Admission and Anticipated Discharge Date Admission Date: March 16, 2024 Subjective Patient is a 48-year-old gentleman with history of hypertension and asthma, history of opioid use on Subutex who came to the hospital with 1 week of feet edema which since yesterday worsened to involve legs as well. He had lower extremity Doppler which was negative for DVT, CT of the chest did not show any evidence of PE. Echocardiogram is done which is pending, patient was empirically treated with IV Lasix 40 mg IV twice daily. Patient was seen and examined, lower extremities from the knee down or swollen, not much erythematous. Physical Exam Physical Exam: VITALS: Reviewed. WEIGHT/BMI reviewed. GEN: Healthy appearing, well-developed, NAD. PSYCH: Good Judgment. AOx3. Normal memory, mood, and affect. CV: RRR, no m/r/g. LUNGS: CTAB, no w/r/c. ABD: Soft, NT/ND, NBS, no masses or organomegaly. : N/A SKIN: Warm, well perfused. No skin rashes or abnormal lesions. MSK: No deformities, Normal gait. EXT: 3+ pedal edema below the knees bilaterally Results & Data Results & Data Vital Signs (Past 12 Hours) Vital Signs Temp Pulse Pulse Resp BP Pulse Ox O2 Del Method 03/17/24 07:40 36.4 C L 109 H 18 153/94 H 92 Room Air 03/17/24 02:55 36.3 C L 91 H 21 130/84 89 L Room Air 03/16/24 23:46 36.7 C 98 H 19 127/83 90 Room Air 03/16/24 23:00 99 H Laboratory Results Laboratory Results - last 24 hr 03/16/24 03/16/24 03/17/24 12:30 13:00 04:41 WBC 7.13 7.81 RBC 4.77 5.32 Hgb 11.6 L 12.8 L Hct 36.9 L 40.9 L MCV 77.4 L 76.9 L MCH 24.3 L 24.1 L MCHC 31.4 L 31.3 L RDW Std Deviation 38.6 38.5 RDW Coeff of [place] 13.7 14.1 Plt Count 211 251 MPV 11.7 11.3 Immature Gran % (Auto) 0.1 Neut % (Auto) 51.1 Lymph % (Auto) 38.4 [place] % (Auto) 5.6 Eos % (Auto) 4.1 Baso % (Auto) 0.7 Neut # (Auto) 3.64 Lymph # (Auto) 2.74 [place] # (Auto) 0.40 Eos # (Auto) 0.29 Baso # (Auto) 0.05 Immature Gran # (Auto) 0.01 Peripher Smr Path Cons Pending PT 10.6 INR 1.0 APTT 28 PTT Ratio 1.0 Sodium 137 138 Potassium 4.3 4.2 Chloride 104 101 Carbon Dioxide 28 30 Anion Gap 5 7 BUN 18 17 Creatinine 0.70 0.80 Est Cr Clr Drug Dosing 168.0 153.7 eGFR 115.08 110.53 BUN/Creatinine Ratio 25.7 H 21.3 H Glucose 119 H 95 Estimat Average Glucose 123 Hemoglobin A1c 5.9 H Lactate 1.0 Calcium 9.0 9.2 Magnesium 1.8 2.2 Iron 41 TIBC 518 H Transferrin 370 H Transferrin % Sat 8 L Ferritin 21.7 Total Bilirubin 0.5 AST 30 ALT 43 Alkaline Phosphatase 228 H Troponin I High Sens 12.7 B-Natriuretic Peptide 470 H Total Protein 7.6 Albumin 4.3 Globulin 3.3 Albumin/Globulin Ratio 1.3 Triglycerides 102 Cholesterol 217 H LDL Cholesterol, Calc 156 VLDL Cholesterol, Calc 20 HDL Cholesterol 41 Cholesterol/HDL Ratio 5.3 H Vitamin B12 793 Folate 7.69 Procalcitonin < 0.02 TSH < 0.010 L < 0.010 L Free T4 1.36 Urine Color Yellow Urine Appearance Clear Urine pH 5.0 Ur Specific [place] 1.031 H Urine Protein 2+ H Urine Glucose (UA) Negative Urine Ketones Negative Urine Blood Negative Urine Nitrite Negative Urine Bilirubin Negative Urine Urobilinogen Negative Ur Leukocyte Esterase Negative Urine WBC (Auto) 0-5 Urine RBC (Auto) 0-2 U Hyaline Cast (Auto) 0-2 U Epithel Cells (Auto) 0-2 Urine Bacteria (Auto) None Seen Urine Opiates Screen Neg Ur Methadone, Qual Neg Urine Fentanyl Screen Neg Urine Barbiturates Neg Ur Phencyclidine (PCP) Neg U Amphetamines Confirm Pending U Amphetamin/Meth Scrn Pos H U Methamphetamin Confrm Pending Urine MDEA Pending MDMA (Ecstasy) Screen Pos H MDMA Pending Urine MDMA Pending U Benzodiazepines Scrn Neg Ur Cocaine Metabolite Neg U Marijuana (THC) Screen Neg Drug Screen Comment Pending Thyroid Antimicrosomal Pending TSH Rec Binding Ab Pending Adenovirus (PCR) Not Detected B. pertussis DNA (PCR) Not Detected B.parapertussis DNA PCR Not Detected C. pneumoniae DNA (PCR) Not Detected Coronavirus OC43 (PCR) Not Detected Coronavirus HKU1 (PCR) Not Detected Coronavirus 229E (PCR) Not Detected SARS-CoV-2 (PCR) Not Detected Coronavirus NL63 (PCR) Not Detected Human Metapneumovir PCR Not Detected Influenza Type A (PCR) Not Detected Influenza Type B (PCR) Not Detected M. pneumoniae (PCR) Not Detected Parainfluenza 1 (PCR) Not Detected Parainfluenza 2 (PCR) Not Detected Parainfluenza 3 (PCR) Not Detected Parainfluenza 4 (PCR) Not Detected RSV (PCR) Not Detected Entero/Rhino (PCR) Not Detected Diagnostic Findings Venous Doppler Study 03/16/24 12:36 EXAMINATION: Bilateral lower extremity ultrasound lower CLINICAL HISTORY: Bilateral leg swelling, wheezing PRIORS: None TECHNIQUE: Ultrasound interrogation of the deep venous structures was performed with grayscale, color Doppler, compression and augmentation. FINDINGS: Examination is limited due to body habitus. The bilateral common femoral, superficial femoral, saphenous, popliteal and tibial veins demonstrate normal compressibility, frequency and augmentation. IMPRESSION: No sonographic evidence of deep venous thrombosis in the bilateral lower extremities. Electronically signed by Mariella Hoffman 03-16-2024 3:16 PM Chest X-Ray 03/16/24 12:37 XR chest 1V portable CLINICAL HISTORY: Dyspnea. COMPARISON STUDY: No previous studies for comparison. FINDINGS: There is no pneumothorax or pleural effusion. There is mild enlargement of the cardiac silhouette. Interstitial thickening is present. Hazy right lower lung opacity is present. IMPRESSION: 1. Mild enlargement of the cardiac silhouette with interstitial thickening suggestive of interstitial pulmonary edema. 2. Hazy right lower lung opacity. This could be related to overlying soft tissues or alveolar pulmonary edema. Superimposed pneumonia could appear similar. Radiographic follow-up is recommended. ACT 112: Negative or not required by law. Electronically signed by: Ryan Eng M.D. 03/16/2024 12:58 PM Chest CTA 03/16/24 13:14 EXAMINATION: Chest CTA with CLINICAL HISTORY: Dyspnea PRIORS: None TECHNIQUE: Contiguous CTA axial images were obtained through the chest with the use of intravenous contrast. Sagittal and coronal reformations are supplied. FINDINGS: Central and segmental pulmonary arteries are well-opacified. No central or peripheral pulmonary embolism. Heart size is top normal. No pleural or pericardial effusion. Moderate to advanced atherosclerotic disease of the coronary arteries. Mild atherosclerotic disease of the aortic arch. Trachea and mainstem bronchi are patent. Mild diffuse groundglass attenuation throughout all lobes of the lung. Mild pulmonary emphysema in the upper lobes. No large bleb or pneumothorax. No traction bronchiectasis or honeycombing. No pneumonia. Thyroid size is normal. Prominent nonpathologically enlarged lymph nodes present in the mediastinum. Limited visualization of the upper abdomen shows no acute abnormality. In bone windows, no acute osseous abnormality. IMPRESSION: 1. No CT evidence of a central or peripheral pulmonary embolism. 2. Mild pulmonary emphysema, most pronounced in the upper lobes with diffuse bilateral groundglass attenuation throughout the lungs favoring alveolitis. No lobar pneumonia. 3. Moderate to advanced atherosclerotic disease of the coronary arteries. ACT 112: Positive. There are findings on this examination that require communication between the performing entity and the patient following Patient Test Result Information Act ([place] ACT 112) guidelines. Electronically signed by Mariella Hoffman 03-16-2024 2:33 PM Thyroid Ultrasound 03/17/24 00:00 US thyroid CLINICAL HISTORY: 48 years-old Male with low TSH, ? R nodule on exam. Abnormal thyroid function tests COMPARISON: CTA chest of same day TECHNIQUE: Multiple real time sonographic images of the thyroid were obtained accessing roth scale appearance and color doppler flow. FINDINGS: MEASUREMENTS: Right lobe: 6.6 x 4.4 x 3.9 cm Left lobe: 5.4 x 2.8 x 2.8 cm Isthmus: 0.7 cm PARENCHYMA: The thyroid parenchymal echotexture is heterogeneous. NODULES: No discrete nodules are appreciated. IMPRESSION: Heterogeneous thyroid parenchyma without discrete nodule identified. Correlate with thyroid function tests. ACT 112: Negative or not required by law. The above report was generated using voice recognition software. It may contain grammatical, syntax or spelling errors. Electronically signed by: Claus Cardenas M.D. 03/17/2024 9:09 AM Medications Administered Current Inpatient Medications Acetaminophen (Acetaminophen 325 Mg Tab) 650 mg PO Q4H PRN PRN Reason: Pain or Fever Stop: 04/15/24 17:29 Albuterol (Albuterol Hfa 8 Gm Inhaler) 2 puffs INH Q4H PRN PRN Reason: DIRECTED Stop: 04/15/24 17:29 Albuterol (Albut/Ipratrop 3mg/0.5mg Neb 3 Ml Vial) 3 ml NEB QIDR PRN; Protocol PRN Reason: shortness of breath or wheezing Stop: 04/15/24 17:29 Aspirin (Aspirin 81 Mg Ectab) 81 mg PO DAILY [facility] Stop: 04/15/24 17:29 Last Admin: 03/17/24 08:38 Dose: 81 mg Buprenorphine HCl (Buprenorphine Hcl 8 Mg Subl) 8 mg SL BID JAKOB Stop: 04/15/24 20:59 Last Admin: 03/17/24 08:41 Dose: 8 mg Enoxaparin Sodium (Enoxaparin Inj 40 Mg/0.4 Ml Syr) 40 mg SQ QAM [facility] Stop: 04/16/24 08:59 Last Admin: 03/17/24 08:38 Dose: 40 mg Fluticasone/Vilanterol (Fluticasone/Vilanterol 100/25mcg 14 Puffs/Inhaler) 1 puffs INH DAILY [facility] Stop: 04/16/24 08:59 Last Admin: 03/17/24 09:39 Dose: 1 puffs Furosemide (Furosemide 40 Mg/4 Ml Vial) 40 mg IV BID17 [facility] Stop: 04/15/24 17:34 Last Admin: 03/17/24 08:38 Dose: 40 mg Polyethylene Glycol (Polyethylene (Miralax) 17 Gm Pack) 17 gm PO DAILY PRN PRN Reason: Constipation Stop: 04/15/24 17:29 Potassium Chloride (Potassium Chloride Crtab 20 Meq Tabcr) 20 meq PO BID [facility] Stop: 04/16/24 08:59 Last Admin: 03/17/24 08:41 Dose: 20 meq (1) Volume overload Hypervolemia type: unspecified Qualified Code(s): E87.70 - Fluid overload, unspecified
--- NOTE | 2024-03-17 11:53 | Cardiology Consultation ---
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 * Gradually introduce guideline directed medical therapy * Spironolactone 25 mg/day * Low dose Losartan * Cautious beta-luzmaria therapy with low dose carvedilol * Aspirin 81 mg/day * Moderate intensity statin therapy * Future ischemic evaluation * ? Future use of Ivabradine * Oral iron supplementation * Consider psychiatry consultation Supervising Physician Co-Signing Physician Notes I have personally performed a history and physical examination on the patient. I have reviewed the advance practitioner's documentation, and I agree with, and take responsibility for the plan of care. 48-year-old male admitted with acute decompensated congestive heart failure with reduced ejection fraction. Clinically improving with IV diuresis.Cardiomyopathy/heart failure likely associated with methamphetamine use. Discussed importance of abstaining from all future use of methamphetamine. Smoking cessation advised. Continue IV furosemide 40 mg twice daily. Initiate evidence-based heart failure therapy including spironolactone, losartan, and beta-luzmaria. Coronary atherosclerosis noted per CT. Add low-dose aspirin and statin therapy. Future ischemic evaluation is warranted. Joe Manzo DO, [facility] History of Present Illness Reason for Consultation: CHF Requesting Physician: [facility], Dr. Jesus Attending Physician: Dr. Varun Reyes MD History of Present Illness Terrell Vázquez is a 48-year-old male who presented to [facility] ER on March 16, 2024 with complaints of shortness of breath, nonproductive cough, wheezing, gurgling, orthopnea, lower extremity peripheral edema, and weight gain, feeling exhausted, easily fatigued. No prior cardiac history. Patient with substance use disorder, history of opioid abuse, on Subutex, chronic methamphetamine use 4-5 times per week for the last 4 years. Notes worsening of peripheral edema today as compared to yesterday. No chest pain. No palpitations. No dizziness or syncope. No fevers or chills. No melena, hematochezia, or hematuria. Past Medical and Surgical History Substance use disorder, on Subutex, chronic methamphetamine use Asthma Dysphagia Hiatal hernia Hypertension previously attributed to Adderall Suspected, never diagnosed/untreated, sleep apnea Tobacco use disorder Depression Anxiety Family History: Mother in June 2023 following bowel obstruction complicated by CVA, in a intermediate. Father is alive with obstructive sleep apnea. One half brother without cardiac issues. No family history of premature CAD or sudden cardiac . Social History: Opioid use disorder, on Subutex. Methamphetamine use in the morning 4-5 times per week. No IV drug use. No alcohol. Currently unemployed, previously working in a [employer] in [place]. Originally from [place]. Allergies Allergy/AdvReac Type Severity Reaction Status Date / Time No Known Allergies Allergy Unverified 05/03/12 09:59 Home Medications Medication Instructions Recorded Confirmed Type albuterol sulfate 2.5 mg/3 mL 2.5 mg continuous nebulization Q4 03/16/24 03/16/24 History (0.083 %) solution for nebulization PRN DIRECTED albuterol sulfate 90 mcg/actuation 2 puff inhalation .EVERY 4-6 HOURS 03/16/24 03/16/24 History aerosol inhaler PRN DIRECTED buprenorphine HCl 8 mg sublingual 8 mg sublingual BID 03/16/24 03/16/24 History tablet fluticasone 100 mcg-salmeterol 50 1 ea inhalation AMHS 03/16/24 03/16/24 History mcg/dose blistr powdr for inhalation Patient History Medical History Asthma History of opioid abuse Surgical History No pertinent past surgical history Family History Other Asthma Diabetes Social History Smoking Status: Current every day smoker Tobacco Type: Cigarettes packs per day: 0.5; Cigarettes Per Day: 1/2 pack per day; Second Hand Exposure: No; Do You Dip or Chew Tobacco: No; Tobacco Cessation Education Requested by Patient: No Hx Alcohol Use: Yes Alcohol type: beer Hx Substance Use: Yes Non-Prescribed Medications: Amphetamines Non-Prescribed Medications Comment: snorts meth 4-5 days/week, former opioid abuse now on suboxone Last Used Substance: Just Prior to Arrival Preferred Language: [place] Communication Ability: Effective Optometrist Owner Required: No Beliefs That Will Affect Care: None Current Living Situation: Spouse and Family Current Living Situation Comment: Lives with girlfriend and son Other Information That Helps Us Care for You: No Feels Safe at Home: Yes Safety Concerns: Feels Safe At This Time Assistive Devices: None Review of Systems Review of Systems: Complete Review of Systems: Constitutional: No fevers, chills, or night sweats. HEENT: No amaurosis fugax. Pulmonary: Asthma. No history of PE. Cardiac: See above. GI/Abd: Dysphagia. GERD. No melena or hematochezia. No kidney problems. No liver problems. No history of pancreatic issues. Vascular: No history of carotid artery disease, AAA, or lower extremity claudication/PAD. Hematologic: No coagulation disorder, anemia, or abnormal bleeding. Musculoskeletal: Negative. Skin: No rash. Neurologic: No history of TIA/CVA. No history of seizure. Male : Negative. Endocrine: No history of diabetes mellitus. Complete Review of Systems is as stated above, negative, or noncontributory Physical Exam Physical Exam: General: A&Ox3. NAD. HENT: Normocephalic. Atraumatic. Eyes: PER. Conjunctiva pink, sclera injected. Neck: JVD. No carotid bruits. Heart: Regular at 88 bpm. Grade I/ apical systolic murmur. No diastolic murmur. Lungs: Diminished. Decreased. Right basilar rales. No wheeze. Abdomen: +BS. Soft. Nontender. No masses or organomegaly. Extremities: 2-3+ edema. Erythema. No clubbing. Limited neurological examination is without focal deficits. Pulses: Posterior tibial=1/4. Results & Data Vital Signs (Past 12 Hours) Vital Signs Temp Pulse Resp BP Pulse Ox O2 Del Method 03/17/24 07:40 36.4 C L 109 H 18 153/94 H 92 Room Air 03/17/24 02:55 36.3 C L 91 H 21 130/84 89 L Room Air 03/16/24 23:46 36.7 C 98 H 19 127/83 90 Room Air Laboratory Results Cardiac Enzymes 03/16/24 03/16/24 Range/Units 12:30 13:00 AST 30 (13-39) U/L Troponin I High Sens 12.7 (0-20) pg/ml B-Natriuretic Peptide 470 H (0-100) pg/ml Coagulation 03/16/24 03/16/24 Range/Units 12:30 13:00 PT 10.6 (9.0-12.0) Seconds APTT 28 (21-31) Seconds B-Natriuretic Peptide 470 H (0-100) pg/ml Lipids 03/17/24 Range/Units 04:41 Triglycerides 102 (0-150) mg/dl Cholesterol 217 H (0-200) mg/dl HDL Cholesterol 41 mg/dl Cholesterol/HDL Ratio 5.3 H (0-5) CBC 03/16/24 03/17/24 Range/Units 12:30 04:41 WBC 7.13 7.81 (4.8-10.8) K/ul RBC 4.77 5.32 (4.70-6.10) M/uL Hgb 11.6 L 12.8 L (14.0-18.0) g/dl Hct 36.9 L 40.9 L (42.0-52.0) % Plt Count 211 251 (130-400) K/uL Neut # (Auto) 3.64 (1.40-6.50) K/uL Lymph # (Auto) 2.74 (1.20-3.40) K/uL [place] # (Auto) 0.40 (0.11-0.59) K/uL Eos # (Auto) 0.29 (0.00-0.50) K/uL Baso # (Auto) 0.05 (0.00-0.20) K/uL Comprehensive Metabolic Panel 03/16/24 03/17/24 Range/Units 12:30 04:41 Sodium 137 138 (136-145) mmol/L Potassium 4.3 4.2 (3.5-5.1) mmol/L Chloride 104 101 (98-107) mmol/L Carbon Dioxide 28 30 (21-32) mmol/L BUN 18 17 (6-23) mg/dl Creatinine 0.70 0.80 (0.6-1.4) mg/dl Glucose 119 H 95 (70-99(Fasting)) mg/dl Calcium 9.0 9.2 (8.6-10.3) mg/dl AST 30 (13-39) U/L ALT 43 (7-52) U/L Alkaline Phosphatase 228 H (34-104) U/L Total Protein 7.6 (6.0-8.3) gm/dl Albumin 4.3 (3.4-5.0) gm/dl Intake and Output 03/16/24 03/17/24 03/17/24 22:59 06:59 14:59 Intake Total 360 / 1000 640 / 1000 Balance 360 / 1000 640 / 1000 Intake: IV 100 / 100 Magnesium Sulfate / D5w 1 gm In 100 / 100 100 ml @ 50 mls/hr IV ONE ONE Rx#:[id number] Oral 360 / 900 540 / 900 Other: Weight 119.1 kg 119.1 kg Weight Measurement Method Built in [facility] Diagnostic Findings Initial EKG on presentation revealed sinus tachycardia 110 bpm with left atrial enlargement, nonspecific T wave abnormality. QTc 500 ms. EKG this morning reveals sinus rhythm at 92 bpm with a first-degree AV block, nonspecific T wave abnormality. I calculated the QTc to be 450 ms. B natruretic peptide 470 pg/mL. Chest x-ray revealed enlargement of the cardiac silhouette with interstitial thickening suggestive of pulmonary edema and a hazy right lower lobe opacity Chest CT was negative for PE, revealing mild pulmonary emphysema, possible alveolitis, moderate to advanced atherosclerotic disease of the coronary arteries. Telemetry: Sinus/sinus tachycardia, 80's to 120 bpm. TTE: Pending
[2024-03-17 13:34] LABS: Iron 43 mcg/dl (35-175); Total Iron Binding Cap Calc 493 mcg/dl (250-450); Transferrin 352 mg/dl (200-360); Transferrin (FE) Percent Satur 9 % (20-50)
[2024-03-17] MEDS: FUROSEMIDE 40 MG/4 ML VIAL IV SCH (13:47)
[2024-03-17] MEDS: SPIRONOLACTONE 25 MG TAB PO SCH (13:47)
[2024-03-17] MEDS: FERROUS SULFATE 325 MG/7.4 ML UDP PO SCH (17:34)
[2024-03-17] MEDS: ATORVASTATIN 40 MG TAB PO SCH (21:50)
[2024-03-17] MEDS: LOSARTAN POTASSIUM 25 MG TAB PO SCH (21:50)
[2024-03-17] MEDS: ACETAMINOPHEN 325 MG TAB PO PRN (21:53)
--- NOTE | 2024-03-18 08:37 | Cardiology Progress Note ---
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 Future use of Ivabradine * Oral iron supplementation * Abstinence from methamphetamine use mandated * Consider psychiatry consultation * Continue telemetry Admission and Anticipated Discharge Date Admission Date: March 16, 2024 Supervising Physician Co-Signing Physician Notes I have personally performed a history and physical examination on the patient. I have reviewed the advance practitioner's documentation, and I agree with, and take responsibility for the plan of care. Acute decompensated congestive heart failure with reduced ejection fraction. Edema unchanged this morning. Continue IV diuresis with furosemide 40 mg 3 times daily. Monitor fluid balance, daily weight, GFR, and electrolytes. Add carvedilol. Continue to titrate goal-directed medical therapy as tolerated. Reviewed importance of avoiding any future use of methamphetamine. Smoking cessation advised. All questions answered patient's satisfaction. Joe Manzo DO, [facility] Subjective Patient seen and examined. Chart, medications, and telemetry reviewed. No AM labs available for review Feeling somewhat better. No wheezing or gurgling last night. Heart racing has improved. Legs feel less swollen. No chest pain. No dizziness Review of Systems Review of Systems: Complete Review of Systems is as stated in the initial consultation or as above, otherwise, negative or noncontributory Physical Exam Physical Exam: General: A&Ox3. NAD. HENT: Normocephalic. Atraumatic. Eyes: PER. Conjunctiva pink, sclera injected. Neck: JVD. No carotid bruits. Heart: Regular at 90 bpm. Grade I/ apical systolic murmur. No diastolic murmur. Lungs: Diminished. Decreased. Clear. Abdomen: +BS. Soft. Nontender. No masses or organomegaly. Extremities: 1-2+ edema. Less erythema. No clubbing. Limited neurological examination is without focal deficits. Pulses: Posterior tibial=1/4. Results & Data Vital Signs (Past 12 Hours) Vital Signs Temp Pulse Pulse Resp BP Pulse Ox O2 Del Method 03/18/24 07:29 36.5 C 108 H 18 137/80 96 Room Air 03/18/24 07:00 90 03/18/24 03:54 36.5 C 101 H 18 117/75 91 Room Air 03/17/24 23:22 36.5 C 92 H 18 118/73 92 Room Air 03/17/24 23:00 103 H Laboratory Results Intake and Output 03/17/24 03/18/24 03/18/24 22:59 06:59 14:59 Intake Total 950 / 1100 150 / 1100 120 / 120 Output Total 1500 / 2000 500 / 2000 Balance -550 / -900 -350 / -900 120 / 120 Intake: Oral 950 / 1100 150 / 1100 120 / 120 Output: Urine 1500 / 2000 500 / 2000 Other: # Unmeasured Voids 2 Weight 118.5 kg Weight Measurement Method Standing Scale Diagnostic Findings Telemetry: Currently sinus at 84 bpm, sinus throughout with heart rates ranging from the 80s to 1 teens March 17, 2024 TTE Interpretation Summary ([facility], Dr. Manzo): Mildly dilated left ventricle. LVEF 30 to 35%. Moderate to severe global hypokinesis of the left ventricle. Mildly dilated right ventricle. Normal RV systolic function. Mildly dilated left atrium. Mild aortic valve sclerosis without significant stenosis. Mild mitral tricuspid regurgitation. Doppler findings do not suggest pulmonary hypertension. Dilated IVC with reduced collapsibility with sniff indicates an elevated right atrial pressure of 15 mmHg. (3) Atherosclerosis of coronary artery Coronary Disease-Associated Artery/Lesion type: [place] artery [place] vs. transplanted heart: [place] heart Associated angina: unspecified whether angina present Qualified Code(s): I25.10 - Atherosclerotic heart disease of [place] coronary artery without angina pectoris
--- NOTE | 2024-03-18 10:55 | Hospitalist Progress Note ---
Date of Service March 18, 2024 Assessment & Plan (1) Acute on chronic systolic CHF (congestive heart failure): Plan: He was found to have ejection fraction of 30 to 35%, patient responded well to diuresis with IV Lasix with -900 mL negative balance overnight, continue with the same for another day and reevaluate tomorrow. Continue with aspirin, Aldactone 25 mg daily, losartan 12.5 mg daily and carvedilol 3.125 mg twice daily as well as Lipitor 40 mg daily. Defer to cardiology if patient needs any ischemic workup. (2) Substance use disorder: Plan: Patient will be counseled, his urine was positive for methamphetamine and MDMA. Continue with Subutex. (3) Microcytic anemia: Plan: Hemoglobin is stable around 11-12, MCV is low, iron studies showed low ferritin, patient was started on ferrous sulfate 325 mg twice daily. (4) Abnormal TSH: Plan: Thyroid antimicrosomal antibody and TSH receptor binding antibody were ordered which are still pending. TSH was found to be extremely low. (5) Prediabetes: Plan: Patient is prediabetic based on hemoglobin A1c of 5.9. May ask upon discharge for dietary consultation and diabetic management. Plan Follow-up with the result of FOBT which is still pending, monitor intake and output and his response to diuresis, reevaluate tomorrow to see if he is stable to be transitioned to oral diuretic. Admission and Anticipated Discharge Date Admission Date: March 16, 2024 Subjective Patient is a 48-year-old gentleman with history of hypertension and asthma, history of opioid use on Subutex who came to the hospital with 1 week of feet edema which since yesterday worsened to involve legs as well. He had lower extremity Doppler which was negative for DVT, CT of the chest did not show any evidence of PE. Echocardiogram is done which is pending, patient was e mpirically treated with IV Lasix 40 mg IV twice daily. He had echocardiogram showing ejection fraction of 30 to 35%, per recommendation by cardiology, patient was started on ARB and carvedilol. Patient was seen and examined, his lower extremity edema seems to have been much better than yesterday, he was -900 mL negative balance over the past 24 hours. Physical Exam Physical Exam: VITALS: Reviewed. WEIGHT/BMI reviewed. GEN: Healthy appearing, well-developed, NAD. PSYCH: Good Judgment. AOx3. Normal memory, mood, and affect. CV: RRR, no m/r/g. LUNGS: CTAB, no w/r/c. ABD: Soft, NT/ND, NBS, no masses or organomegaly. : N/A SKIN: Warm, well perfused. No skin rashes or abnormal lesions. MSK: No deformities, Normal gait. EXT: 2+ pedal edema below the knees bilaterally Results & Data Results & Data Vital Signs (Past 12 Hours) Vital Signs Temp Pulse Pulse Resp BP Pulse Ox O2 Del Method 03/18/24 10:44 36.7 C 101 H 18 136/81 92 Room Air 03/18/24 07:29 36.5 C 108 H 18 137/80 96 Room Air 03/18/24 07:00 90 03/18/24 03:54 36.5 C 101 H 18 117/75 91 Room Air 03/17/24 23:22 36.5 C 92 H 18 118/73 92 Room Air 03/17/24 23:00 103 H Laboratory Results Laboratory Results - last 24 hr 03/17/24 03/17/24 04:41 12:53 Peripher Smr Path Cons Iron 43 TIBC 493 H Transferrin 352 Transferrin % Sat 9 L Medications Administered Current Inpatient Medications Acetaminophen (Acetaminophen 325 Mg Tab) 650 mg PO Q4H PRN PRN Reason: Pain or Fever Stop: 04/15/24 17:29 Last Admin: 03/17/24 21:53 Dose: 650 mg Albuterol (Albuterol Hfa 8 Gm Inhaler) 2 puffs INH Q4H PRN PRN Reason: DIRECTED Stop: 04/15/24 17:29 Albuterol (Albut/Ipratrop 3mg/0.5mg Neb 3 Ml Vial) 3 ml NEB QIDR PRN; Protocol PRN Reason: shortness of breath or wheezing Stop: 04/15/24 17:29 Aspirin (Aspirin 81 Mg Ectab) 81 mg PO DAILY JAKOB Stop: 04/15/24 17:29 Last Admin: 03/18/24 08:17 Dose: 81 mg Atorvastatin Calcium (Atorvastatin 40 Mg Tab) 40 mg PO QPM JAKOB Stop: 04/16/24 20:59 Last Admin: 03/17/24 21:50 Dose: 40 mg Buprenorphine HCl (Buprenorphine Hcl 8 Mg Subl) 8 mg SL BID JAKOB Stop: 04/15/24 20:59 Last Admin: 03/18/24 08:24 Dose: 8 mg Carvedilol (Carvedilol 3.125 Mg Tab) 3.125 mg PO BIDM [facility] Stop: 04/17/24 08:59 Enoxaparin Sodium (Enoxaparin Inj 40 Mg/0.4 Ml Syr) 40 mg SQ QAM [facility] Stop: 04/16/24 08:59 Last Admin: 03/18/24 08:17 Dose: 40 mg Ferrous Sulfate (Ferrous Sulfate 325 Mg/7.4 Ml Udp) 325 mg PO BIDM [facility] Stop: 04/16/24 16:59 Last Admin: 03/18/24 08:17 Dose: 325 mg Fluticasone/Vilanterol (Fluticasone/Vilanterol 100/25mcg 14 Puffs/Inhaler) 1 puffs INH DAILY [facility] Stop: 04/16/24 08:59 Last Admin: 03/18/24 08:16 Dose: 1 puffs Furosemide (Furosemide 40 Mg/4 Ml Vial) 40 mg IV TID [facility] Stop: 04/16/24 12:29 Last Admin: 03/18/24 08:16 Dose: 40 mg Losartan Potassium (Losartan Potassium 25 Mg Tab) 12.5 mg PO QPM [facility] Stop: 04/16/24 20:59 Last Admin: 03/17/24 21:50 Dose: 12.5 mg Polyethylene Glycol (Polyethylene (Miralax) 17 Gm Pack) 17 gm PO DAILY PRN PRN Reason: Constipation Stop: 04/15/24 17:29 Potassium Chloride (Potassium Chloride Crtab 20 Meq Tabcr) 20 meq PO BID JAKOB Stop: 04/16/24 08:59 Last Admin: 03/18/24 08:24 Dose: 20 meq Spironolactone (Spironolactone 25 Mg Tab) 25 mg PO QAM [facility] Stop: 04/16/24 12:29 Last Admin: 03/18/24 08:17 Dose: 25 mg
[2024-03-18 11:21] LABS: BUN Creatinine Ratio 24.7 (10-20); Calcium 9.6 mg/dl (8.6-10.3); Creatinine Clr Calc Pharmacy 144.3 ml/min; Magnesium 2.2 mg/dl (1.7-2.4); Potassium 4.7 mmol/L (3.5-5.1)
[2024-03-18] MEDS: carvediloL 3.125 MG TAB PO SCH (11:52)
[2024-03-18] MEDS: FERROUS SULFATE 325 MG TAB PO SCH (18:05)
--- NOTE | 2024-03-19 06:28 | Electrocardiogram Report ---
Test Reason : Blood Pressure : */* mmHG Vent. Rate : 92 BPM Atrial Rate : 92 BPM P-R Int : 234 ms QRS Dur : 110 ms QT Int : 396 ms P-R-T Axes : 54 -2 69 degrees QTcB Int : 490 ms Sinus rhythm with 1st degree A-V block Nonspecific T wave abnormality Prolonged QT Abnormal ECG When compared with ECG of 16-Mar-2024 12:39, MT interval has increased Confirmed by Velasquez Arellano ([id number]) on 03/19/2024 6:28:46 AM Referred By: REFERRED SELF Confirmed By: Velasquez Arellano
--- NOTE | 2024-03-19 09:45 | Cardiology Progress Note ---
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 * Outpatient ischemic evaluation * Abstinence from methamphetamine use mandated * Tobacco cessation mandated Admission and Anticipated Discharge Date Admission Date: March 16, 2024 Supervising Physician Co-Signing Physician Notes I have personally performed a history and physical examination on the patient. I have reviewed the advance practitioner's documentation, and I agree with, and take responsibility for the plan of care. Acute decompensated congestive heart failure with reduced ejection fraction. Edema improved. Transition to oral diuretic therapy. Agree with titration of carvedilol. Outpatient [facility] clinic referral. Reviewed importance of avoiding any future use of methamphetamine. Smoking cessation advised. All questions answered patient's satisfaction. Outpatient cardiology follow-up in 1 to 2 weeks. Joe Manzo DO, [facility] Subjective Patient seen and examined. Chart, medications, and telemetry reviewed. Feeling better. Legs have considerably improved. No chest pain, dyspnea, wheezing, gurgling, orthopnea, PND, palpitations, dizziness, or near syncope. Review of Systems Review of Systems: Complete Review of Systems is as stated in the initial consultation or as above, otherwise, negative or noncontributory Physical Exam Physical Exam: General: A&Ox3. NAD. HENT: Normocephalic. Atraumatic. Eyes: PER. Conjunctiva pink, sclera injected. Neck: No JVD. Heart: Regular at 90 bpm. Grade I/ apical systolic murmur. No diastolic murmur. Lungs: Diminished. Decreased. Clear. Abdomen: +BS. Soft. Nontender. No masses or organomegaly. Extremities: Mild pretibial edema. Improved erythema. No cyanosis Limited neurological examination is without focal deficits. Pulses: Posterior tibial=2/4. Results & Data Vital Signs (Past 12 Hours) Vital Signs Temp Pulse Pulse Resp BP Pulse Ox O2 Del Method 03/19/24 07:39 36.3 C L 93 H 18 121/82 96 Room Air 03/19/24 02:47 36.3 C L 86 18 122/81 94 Room Air 03/18/24 23:08 36.4 C L 85 18 132/85 92 Room Air 03/18/24 23:00 82 Laboratory Results No AM labs available for review (requested) Intake and Output 03/18/24 03/19/24 03/19/24 22:59 06:59 14:59 Intake Total 1570 / 1810 Output Total 2380 / 2380 150 / 150 Balance -810 / -570 -150 / -150 Intake: Oral 1570 / 1810 Output: Urine 2380 / 2380 150 / 150 Other: Weight 118.1 kg Weight Measurement Method Standing Scale Diagnostic Findings Telemetry: Sinus in the 70's to 90's, with rare PVC in singles. (3) Atherosclerosis of coronary artery Associated angina: unspecified whether angina present Coronary Disease- Associated Artery/Lesion type: [place] artery [place] vs. transplanted heart: [place] heart Qualified Code(s): I25.10 - Atherosclerotic heart disease of [place] coronary artery without angina pectoris
[2024-03-19 09:57] LABS: Hemoglobin 13.7 g/dl (14.0-18.0); Mean Corpuscular Hemoglobin 24.1 pg (25.0-34.0); Mean Corpuscular Hgb Conc 31.1 g/dL (32.0-36.0); Mean Corpuscular Volume 77.5 fL (80.0-100.0); Mean Platelet Volume 11.3 fL (9.4-12.4); Platelet Count 302 K/uL (130-400); RDW Coefficient of Variation 14.1 % (11.5-14.5); Red Blood Count 5.68 M/uL (4.70-6.10); White Blood Count 9.78 K/ul (4.8-10.8)
[2024-03-19 10:09] LABS: Albumin Globulin Ratio 1.1 (0.9-2); Albumin Level 4.2 gm/dl (3.4-5.0); BUN Creatinine Ratio 24.4 (10-20); Bilirubin,Total 0.6 mg/dl (0.2-1.0); Calcium 9.4 mg/dl (8.6-10.3); Creatinine Clr Calc Pharmacy 149.3 ml/min; Globulin 3.9 gm/dl (2.5-4.0); Potassium 4.5 mmol/L (3.5-5.1); Total Protein 8.1 gm/dl (6.0-8.3)
--- NOTE | 2024-03-19 10:27 | Discharge Summary ---
Discharge Summary Date of Service March 19, 2024 Principal Dx & Hospital Course #1 = Principal Diagnosis (1) Acute on chronic systolic CHF (congestive heart failure): (2) Substance use disorder: (3) Microcytic anemia: (4) Abnormal TSH: (5) Prediabetes: Notes For Next Care Provider Medication Changes From Visit Carvedilol 3.125 mg twice daily Losartan 12.5 mg daily K. Dur 20 mEq daily Lasix 80 mg daily Aldactone 25 mg daily Aspirin 81 mg daily Lipitor 40 mg daily Admission HPI Per Admitting Provider Patient is a 48-year-old gentleman with history of hypertension and asthma, history of opioid use on Subutex who came to the hospital with 1 week of feet edema which since yesterday worsened to involve legs as well. He had lower extremity Doppler which was negative for DVT, CT of the chest did not show any evidence of PE. Echocardiogram is done which is pending, patient was empirically treated with IV Lasix 40 mg IV twice daily. He had echocardiogram showing ejection fraction of 30 to 35%, per recommendation by cardiology, patient was started on ARB and carvedilol. Patient was seen and examined, his lower extremity edema seems to have been much better than yesterday, he was -570 mL negative balance over the past 24 hours, clinically stable, on examination his leg swelling appeared much better, patient was ordered and recommended by cardiology to be transition to oral diuretic, we decided to transition to Lasix 80 mg daily along with Aldactone 25 mg daily and potassium supplement of 20 mEq daily. Patient will be discharged home on combination of losartan 12.5 mg daily, carvedilol 3.125 mg daily and aspirin and Lipitor. Patient needs to be enrolled in CHF program and have a follow-up as outpatient by cardiology. Updated Medication List Medication Instructions Recorded Confirmed Type albuterol sulfate 2.5 mg/3 mL 2.5 mg continuous nebulization Q4 03/16/24 03/16/24 History (0.083 %) solution for nebulization PRN DIRECTED albuterol sulfate 90 mcg/actuation 2 puff inhalation .EVERY 4-6 HOURS 03/16/24 03/16/24 History aerosol inhaler PRN DIRECTED buprenorphine HCl 8 mg sublingual 8 mg sublingual BID 03/16/24 03/16/24 History tablet fluticasone 100 mcg-salmeterol 50 1 ea inhalation [facility] 03/16/24 03/16/24 History mcg/dose blistr powdr for inhalation aspirin 81 mg tablet,delayed 81 mg PO DAILY 30 days #30 tabs 03/19/24 Rx release atorvastatin 40 mg tablet 40 mg PO QPM 30 days #30 tabs 03/19/24 Rx carvedilol 3.125 mg tablet 3.125 mg PO BIDM 30 days #60 tabs 03/19/24 Rx ferrous sulfate 325 mg (65 mg 325 mg PO BIDM 30 days #60 tabs 03/19/24 Rx iron) tablet,delayed release furosemide 80 mg tablet 80 mg PO DAILY #30 tabs 03/19/24 Rx losartan 25 mg tablet 12.5 mg (1/2 x 25 mg) PO QPM 30 03/19/24 Rx days #15 tabs potassium chloride 20 mEq oral 20 meq PO DAILY #30 ea 03/19/24 Rx packet spironolactone 25 mg tablet 25 mg PO QAM 30 days #30 tabs 03/19/24 Rx Hospital Stay Data Consultations 03/16/24 15:53 ED Decision to Admit Stat 03/16/24 16:34 Consult Cardiology Routine Diagnostic Imagining Performed 03/16/24 12:36 US venous doppler LE BI Stat 03/16/24 13:14 CT angio chest PE protocol Stat 03/17/24 US thyroid Routine Pending Results Patient Have Any Pending Studies at Discharge: No Discharge Instructions Given to Patient (Per Discharging Provider) Patient needs to have follow-up by cardiology as outpatient Total Time Total Time Spent Total Time Spent (In Minutes): More than 40 minutes
[2024-03-19 11:19] VITALS: BP 117/79; PULSE 96; TEMP 97.5; O2SAT 94
[2024-03-19 17:22] LABS: Microsomal Ab >900 IU/mL (<9)
== END 2024-03-19 12:35 | disposition home or self-care (01) | DRG 291 ==
LOC: ED 12:15 → 4W 15:58 → SUATTDRO 15:58 → 4W 17:30